=== PATIENT | male | born 1965 | race Caucasian/White ===

== ENCOUNTER 2018-08-16 16:36 | Inpatient (IN) | payer MEDICARE, MEDICAID ==
[~2018-08-16] VITALS: Ht 175.3 cm; Wt 75.9 kg
[2018-08-16] MEDS ORDERED: PACERONE200 MG PO (21:29)
[2018-08-16] MEDS ORDERED: LASIX40 MG PO (21:29)
[2018-08-16] MEDS ORDERED: BUPROPION HCL100 MG PO (21:30)
[2018-08-16] MEDS ORDERED: ENTRESTO 49 MG1 EACH PO (21:30)
[2018-08-16] MEDS ORDERED: ALDACTONE25 MG PO (21:30)
--- NOTE | 2018-08-16 21:30 | NUR ---
ADMIT ASSESSMENT COMPLETE. PT IS PALE AND DIAPHORETIC. HAS DYSPNEA AND SOB. COUGH THAT IS NOT PRODUCTIVE. AAO, LUNGS HAVE RHONCI, DIMINISHED 5L O2 NC. S1S2 RRR LEFT CHEST PACEMAKER NOTED. RIGHT FOREARM IV 20G STATES LAST BEER WAS YESTURDAY, ONE BEER. AND HAD 2-3 THE DAY BEFORE THAT. PT HAS NO S/S OF DT AT THIS TIME. NO S/S OF DISTRESS. CALL LIGHT IN REACH. BEDLOW TELEMETRY APPLIED. PT WILL CALL FOR ASSIST WHEN NEEDED. WILL CPOC
[2018-08-16] MEDS ORDERED: ASPIRIN325 MG PO (21:31)
[2018-08-16] MEDS ORDERED: KLONOPIN0.5 MG PO (21:33)
--- NOTE | 2018-08-16 22:57 | NUR ---
SPOKE WITH DR VILLAFUERTE REGARDING PT PAIN AND NEED OF HOME MEDICATIONS. PT HOME MEDS RESTARTED AND DILAUDID PUT IN ORDERED. WILL CPOC
--- NOTE | 2018-08-16 23:05 | NUR ---
PT UP TO GET ACCURATE WEIGHT. 176LBS PT NOW SOB AND SEVERE DYSPNEA. DILAUDID GIVEN FOR PAIN. MONITORING THE TELEMETRY. PT WILL CALL FOR NEEDS. WILL CPOC
[2018-08-17] VITALS (19 sets, daily range): BP systolic 93–128; BP diastolic 60–77; Ht 175.3 cm; Wt 75.9 kg
--- NOTE | 2018-08-17 03:22 | NUR ---
PT O2 SAT IS 70% ON 5L O2 NC. PLACED PT ON 5L HIGH FLOW NC, RESP IN ROOM. PT HARD TO WAKE, PHYSICAL STIMULI TO AROUSE. PT O2 SAT NOW 98% PT HAS NO S/S OF DISTRESS. BEDLOW AND CALL LIGHT IN REACH. WILL CPOC
--- NOTE | 2018-08-17 07:53 | NUR ---
THERE WAS QUESTIONS ABOUT PATIENTS RESPIRATORY STATUS. I RELAYED THE ABG FINDINGS TO JAK DUNCAN APN. SHE QUESTIONED TIME DRAWN, ANSWERED. WANTED TO KNOW WHAT THEY WERE NOW, NO DOCUMENTATION IN THE COMPUTER. I WENT INTO PATIENT ROOM TO OBTAIN SATS. ON RIGHT HAND ONLY ONE FINGER HAD ADEQUATE CAPILLARY REFILL OF LESS THAN 5 SECONDS. THIS IS THE RING FINGER. PULSE OX APPLIED. PATIENTS SATS 89% ON 9L OXYMIZER AND HE DESATED INTO LOWER 80'S HE TALKED. I ENCOURAGED THE PATIENT TO COUGH AND SATS INCREASED TO 92-93% BUT WOULD NOT HOLD LONG PATIENT TALKING. THIS INFORMATION RELAYED TO JAK AND THE BEDSIDE NURSE, JOSELITO MANRIQUEZ.
[2018-08-17 09:21] LABS: APTT 38.2 SECONDS (22.8-39.4); INR 1.15 (0.85-1.17); PROTIME 14.2 SECONDS (11.6-15.0)
[2018-08-17 09:34] LABS: ALBUMIN 2.3 g/dL (3.4-5.0); ANION GAP 13.1 mmol/L (8-16); BILIRUBIN - TOTAL 0.2 mg/dL (0.2-1.3); CALCIUM 8.6 mg/dL (8.5-10.1); CARBON DIOXIDE 26.2 mmol/L (21.0-32.0); CREATININE - SERUM 1.1 mg/dL (0.6-1.3); D-DIMER-QUANTITATIVE 11.09 ug/mLFEU (0.20-0.54); MAGNESIUM - SERUM 1.8 mg/dL (1.8-2.4); POTASSIUM - SERUM 4.3 mmol/L (3.5-5.1); PROTEIN - SERUM 6.9 g/dL (6.4-8.2)
[2018-08-17 09:36] LABS: CKMB 2.1 U/L (0.0-3.6); CREATINE KINASE 213 UL (21-232); TROPONIN-I < 0.017 ng/mL (0.000-0.060)
--- NOTE | 2018-08-17 10:00 | NUR ---
RECEIVED FROM ROOM 2105 PER BED WITH INCREASED SHORTNESS OF BREATH WITH PULSE OX DROPPING. PATIENT AWAKE AND ALERT SKIN WARM AND DRY. OXYGEN PER NC AT 9 LITERS. PULSE OX 93%. STATES ABD AND CHEST HURTING FROM COUGHING SO MUCH. ABD LOOKS TIGHT BUT SOFT. STATES HE STILL SMOKES SOME. IV RIGHT FOREARM INFUSING WITH DOBUTAMINE AT 2.5 MG/KG/MIN. AND LEVOQUIN INFUSING AT 100 ML HOUR. IV RED AND SLIGHTLY SWOLLEN. RESTARTED LEFT FOREARM PER ANJELICA YEE. X 2 ATTEMPTS. WITH 20 GAUGE. IV LEFT FOREARM DC'D.ADMITS TO BEING SHORT OF BREATH.
--- NOTE | 2018-08-17 10:01 | NUR ---
PATIENT IS STABLE AND VSS. HF NC @ 5L. O2SA5T 90%. ORDER RECIEVED FOR TRANSFER TO ICU. REPORT CALLED TO JOSSELINE. PATIENT TO ROOM 2312 VIA BED AND HOSPITAL PERSONNEL.
--- NOTE | 2018-08-17 10:30 | NUR ---
DR. VILLAFUERTE HERE. ORDERS NOTED
--- NOTE | 2018-08-17 10:57 | NUR ---
ECHO IN PROGRESS. THEN GOING TO CT SCAN
--- NOTE | 2018-08-17 11:15 | NUR ---
RETURNED FROM CT SCAN TOLERATED WELL. MOVED SELF FROM BED TO TABLE
--- NOTE | 2018-08-17 11:57 | NUR ---
DR. CLAY HERE UPDATE GIVEN ON PATIENT
[2018-08-17 12:05] LABS: HEMATOCRIT 27.9 % (42.0-54.0); HEMOGLOBIN 9.2 g/dL (13.5-17.5); MCH 27.7 pg (26.0-34.0); MEAN PLATELET VOLUME 9.9 fL (7.4-10.4); PLATELET COUNT 263 10x3/uL (130-400); RBC 3.32 10x6/uL (4.20-6.10); RDW 14.5 % (11.5-14.5); WBC 23.4 10x3/uL (4.8-10.8)
--- NOTE | 2018-08-17 12:30 | NUR ---
GIRL FRIEND HERE UP DATE GIVEN ASSISTED WITH CLEAN CATCH UA
[2018-08-17 12:33] LABS: LYMPHOCYTES 4 % (15-50); MONOCYTES 12 % (2-11); NEUTROPHILS 81 % (40-80)
[2018-08-17 13:08] LABS: PLATELET ESTIMATE NORMAL
[2018-08-17 13:37] LABS: UDS - AMPHET POSITIVE QUAL (NEGATIVE); UDS - BARB NEGATIVE QUAL (NEGATIVE); UDS - BENZO NEGATIVE QUAL (NEGATIVE); UDS - COCAINE NEGATIVE QUAL (NEGATIVE); UDS - OPIATE POSITIVE QUAL (NEGATIVE); UDS - PCP NEGATIVE QUAL (NEGATIVE); UDS - THC NEGATIVE QUAL (NEGATIVE)
[2018-08-17 13:39] LABS: APPEARANCE CLEAR (CLEAR); COLOR YELLOW (YELLOW); NITRITE NEGATIVE (NEGATIVE)
[2018-08-17 13:40] LABS: BILIRUBIN NEGATIVE (NEGATIVE); GLUCOSE NEGATIVE (NEGATIVE); KETONE NEGATIVE (NEGATIVE); PROTEIN 3+ mg/dL (NEGATIVE); UROBILINOGEN NORMAL (NORMAL)
[2018-08-17 13:42] LABS: BACTERIA FEW /hpf (NONE SEEN); EPITHELIAL CELLS 0-5 /hpf (0-5); RED CELLS - URINE NONE SEEN /hpf (0-5); WHITE CELLS - URINE NSEEN /hpf (0-5)
--- NOTE | 2018-08-17 13:54 | NUR ---
DR. VILLAFUERTE NOTIFIED OF URINE DRUG SCREEN RESULTS & ORDERED TYENOL FOR COMPLIANTS OF CHEST PAIN.
[2018-08-17 15:29] LABS: CKMB 2.1 U/L (0.0-3.6); CREATINE KINASE 241 UL (21-232)
--- NOTE | 2018-08-17 15:30 | NUR ---
PULSE OX IS DROPPING DONE INTO 80'S WHEN PATIENT IS SLEEPING. HAVE TO WAKE UP PATIENT AND HAVE HIM COUGH TO BRING UP. PATIENT CAN SLEEP AT TIMES WITH PULSE OX IN LOWER 90'S.
[2018-08-17 15:32] LABS: TROPONIN-I < 0.017 ng/mL (0.000-0.060)
--- NOTE | 2018-08-17 17:21 | NUR ---
dinner tray served
--- NOTE | 2018-08-17 18:20 | NUR ---
desat down into 80's when he tried to eat. resp therapy notified to set up a bipap machine
--- NOTE | 2018-08-17 19:35 | NUR ---
PT RECEIVED ON BIPAP WITH EYES CLOSED AND CHEST RISING. VSS. NO S/S OF DISTRESS. CALL LIGHT IN REACH.
[2018-08-17 20:47] LABS: CKMB 1.8 U/L (0.0-3.6); CREATINE KINASE 201 UL (21-232); TROPONIN-I < 0.017 ng/mL (0.000-0.060)
--- NOTE | 2018-08-17 21:05 | NUR ---
PT RECEIVED MEDICATIONS PER MAR. TOLERATED WELL. ON HFN/C 8LPM. FAMILY AT BEDSIDE. REPORT GIVEN AND QUESTIONS ANSWERED. NO CONCERNS NOTED.
--- NOTE | 2018-08-17 23:45 | NUR ---
REASSESSMENT COMPLETED, SEE FLOW SHEET. CONTINUES HF N/C. CALL LIGHT IN REACH. WILL CONTINUE TO OBSERVE.
[2018-08-18] VITALS (20 sets, daily range): BP systolic 84–105; BP diastolic 57–70
--- NOTE | 2018-08-18 01:30 | NUR ---
PT WITH EYES CLOSED AND CHEST RISING. NO S/S OF DISTRESS. WILL CONTINUE TO OBSERVE.
--- NOTE | 2018-08-18 03:04 | NUR ---
REASSESSMENT COMPLETED, SEE FLOW SHEET. PT MOVED TO RM 2315, DUE TO MONITOR NOT FUNCTIONING PROPERLY. MONITOR WOULD BLACKOUT AND COME BACK ON, CHANGING SETTINGS. PT PLACED ON BIPAP. TOLERATING WELL AT THIS TIME. CALL LIGHT IN REACH. WILL CONTINUE TO OBSERVE.
[2018-08-18 04:49] LABS: BASOPHILS 0.1 % (0-2); EOSINOPHILS 1.8 % (0-7); HEMATOCRIT 27.1 % (42.0-54.0); HEMOGLOBIN 9.3 g/dL (13.5-17.5); IMMATURE GRANULOCYTES 0.9 % (0-5); LYMPHOCYTES 5.3 % (15-50); MCHC 34.3 g/dL (31.0-37.0); MEAN PLATELET VOLUME 9.2 fL (7.4-10.4); MONOCYTES 7.3 % (2-11); NEUTROPHILS 84.6 % (40-80); PLATELET COUNT 239 10x3/uL (130-400); RBC 3.32 10x6/uL (4.20-6.10); RDW 14.1 % (11.5-14.5)
[2018-08-18 04:55] LABS: MCV 81.6 fL (80.0-100.0); WBC 14.6 10x3/uL (4.8-10.8)
[2018-08-18 05:01] LABS: ANION GAP 14.2 mmol/L (8-16); CALCIUM 8.4 mg/dL (8.5-10.1); CARBON DIOXIDE 25.5 mmol/L (21.0-32.0); CREATININE - SERUM 1.2 mg/dL (0.6-1.3); POTASSIUM - SERUM 3.7 mmol/L (3.5-5.1)
--- NOTE | 2018-08-18 08:00 | NUR ---
awakes easily to verbal sitmuli skin warm and dry, sleepy this am. left forearm iv red no swelling. infusing with dobutamine at 2.5 mcg/kg/min. void 275cc clear tabby urine. monitor sr. breakfast served ate well. good cough. trace edema all over.
--- NOTE | 2018-08-18 09:00 | NUR ---
GIRLFRIEND HERE ASSIST WITH COMPLETE BED BATH WITH HAIR WASHED. LINEN CHANGE
--- NOTE | 2018-08-18 09:56 | NUR ---
2 nurses tried to get iv on patient unsuccessful. DR. CLAY HERE ORDER MIDLINE. COMPLETE BED BATH GIVEN PER GIRLFRIEND. LINEN CHANGE. HAIR WASHED. UP TO CHAIR AT BEDSIDE SOME SHORTNESS OF BREATH, BUT TOLERATED WELL.
--- NOTE | 2018-08-18 10:00 | NUR ---
RAYMUNDO HERE TO DO MIDLINE
--- NOTE | 2018-08-18 10:30 | NUR ---
MID LINE COMPLETE PATIENT TOLERATED FAIR. NEW LINES APPLIED. DOBUTAMINE AT 2.5 MCG/KG/MIN. NS KVO FOR IVPB
--- NOTE | 2018-08-18 12:00 | NUR ---
LUNCH SERVED. POOR APPETITE ATE FEW BITES OF TURKEY AND MASHED POTATOES.
--- NOTE | 2018-08-18 13:02 | NUR ---
JEFE WITH DR. ENGLAND HERE, ORDERS TO DC DOBUTAMINE GOING TO CHANGE TO PO BLOOD THINNER.
--- NOTE | 2018-08-18 14:48 | MORECARE ---
CASE MANAGEMENT DISCHARGE SUMMARY PATIENT: JAY BAKER UNIT: [id number] ADM DATE: 08/16/18 AGE: 52 : 65 SEX: M ROOM/BED: D.2315 AUTHOR: FABRICIO HERNANDEZ PHYSICIAN: REFERRING PHYSICIAN: ROSALINDA VILLAFUERTE MD DATE OF SERVICE: 08/18/18 Discharge Plan Patient Name: [facility]AY BAK[facility] [facility] 1965 Planned Disposition: Home Anticipated Discharge Date: Discharge Date: Expected LOS: Initial Reviewer: [email or web address] Initial Review Date: 08/18/2018 Generated: 08/18/18 3:48 pm DCPIA - Discharge Planning Initial Assessment Updated by [email or web address]: Margaret Naranjo on 08/18/18 2:45 pm * Is the patient Alert and Oriented? Yes * How many steps to enter\exit or inside your home? * PCP Kash * Pharmacy [facility] * Preadmission Environment Home with Family * ADLs Independent * Equipment Monitor Cardiac * Other Equipment patient states he is suppose to use a cardiac cath technologist but it doesn't cherry picker operator at his home * List name and contact numbers for known caregivers / representatives who currently or will assist patient after discharge: Kristy Amor - girlfriend- [phone] * Verbal permission to speak to the caregivers and representatives has been obtained from the patient. N/A * Community resources currently utilized None * Additional services required to return to the preadmission environment? No * Can the patient safely return to the preadmission environment? Yes * Has this patient been hospitalized within the prior 30 days at any hospital? Yes Patient Name: JAY BAKER Page 47798 at 1448 All edits/amendments must be made on the electronic document DICTATION DATE: 08/18/181447 JOURNALISM PROFESSOR: ALFONSO 08/18/188 RPT#: [id number] DC DATE: STATUS: ADM IN [facility] [address] [place] [address] END OF REPORT
--- NOTE | 2018-08-18 14:58 | MORECARE ---
CASE MANAGEMENT DISCHARGE SUMMARY PATIENT: JAY BAKER UNIT: [id number] ADM DATE: 08/16/18 AGE: 52 : 65 SEX: M ROOM/BED: D.2315 AUTHOR: MARY,DOC PHYSICIAN: REFERRING PHYSICIAN: ROSALINDA VILLAFUERTE MD DATE OF SERVICE: 08/18/18 Discharge Plan Patient Name: JAY BAKER Facility: [facility]:[place] : 1965 Planned Disposition: Home Anticipated Discharge Date: Discharge Date: Expected LOS: Initial Reviewer: [email or web address] Initial Review Date: 08/18/2018 Generated: 08/18/18 3:58 pm Comments DCP- Discharge Planning Updated by [email or web address]: Margaret Naranjo on 08/18/18 1:[address] Patient Name: JAY BAKER Admission Status: Elective Accout number: [id number] Admission Date: 08-16-2018 : 1965 Admission Diagnosis:ACUTE RESPIRATORY FAILURE WITH HYPOXIA Attending: ROSALINDA VILLAFUERTE Current LOS: 2 Anticipated DC Date: Planned Disposition: Home Primary Insurance: MEDICARE A & B Discharge Planning Comments: CM met with patient at bedside. Patient states he lives at home with his girlfriend ( Kristy). He plans on returning to their home upon discharge. He states he feels safe at his home. He states he has a cardiac rehab nurse that he is suppose to wear. He states that it doesn't sisal picker where he lives. Patient may need home 02 upon discharge if he does require home 02 then he will need walk test. He states he will have family drive him home upon discharge. He denies any discharge needs at this time. CM will continue to follow and assist as needed with discharge planning / needs. Dress Operator: Margaret Naranjo DCPIA - Discharge Planning Initial Assessment Updated by [email or web address]: Margaret Naranjo on 08/18/18 2:45 pm * Is the patient Alert and Oriented? Yes * How many steps to enter\exit or inside your home? * PCP Kash * Pharmacy [facility] * Preadmission Environment Home with Family * ADLs Independent * Equipment Monitor Cardiac * Other Equipment patient states he is suppose to use a cardiac rehab nurse but it doesn't sisal picker at his home * List name and contact numbers for known caregivers / representatives who currently or will assist patient after discharge: Kristy Amor - girlfriend- [phone] * Verbal permission to speak to the caregivers and representatives has been obtained from the patient. N/A * Community resources currently utilized None * Additional services required to return to the preadmission environment? No * Can the patient safely return to the preadmission environment? Yes * Has this patient been hospitalized within the prior 30 days at any hospital? Yes Last DP export: 08/18/18 1:48 p Patient Name: JAY BAKER Page 13652 at 1458 All edits/amendments must be made on the electronic document DICTATION DATE: 08/18/181457 CARBIDE TOOL MAKER: ALFONSO 08/18/181457 RPT#: [id number] DC DATE: STATUS: ADM IN [facility] [address] [place] [address] END OF REPORT
--- NOTE | 2018-08-18 16:00 | NUR ---
COMPLAINTING OF COUGHING ANO NOT GETTING ANYTHING UP, NOY CHRISTIAN HERE NOTIFIED ORDER SOME COUGH SYRUP. STATES CHEST AND ABD HURTING FROM COUGHING SO MUCH. DOBUTAMINE OFF. DILAUDID GIVEN FOR ABD AND CHEST PAIN
--- NOTE | 2018-08-18 18:00 | NUR ---
ATE FAIR AT SUPPER. FAMILY AND PATIENT NOTIFIED OF TRANSFER TO 2138 WHEN ROOM CLEAN
--- NOTE | 2018-08-18 19:30 | NUR ---
PT RECEIVED WITH EYES CLOSED AND CHEST RISING. ON HIGH FLOW N/C 8LPM. EASILY AROUSED TO VERBAL STIMULI. NO CONCERNS MADE KNOWN. TRANSFER ORDERS RECEIVED AND WAITING ON RECEIVING UNIT ROOM TO BE CLEANED. WILL RECHECK AVAILABILITY. WILL CONTINUE TO OBSERVE.
--- NOTE | 2018-08-18 21:08 | NUR ---
REPORT GIVEN. 2100 MEDS GIVEN PER MAR WITH PRN DILAUDID AND COUGH MEDICATION GIVEN. PT AWARE OF TRANSFER AND AT BEDSIDE. GATHERING CHART AND BELONGINGS.
--- NOTE | 2018-08-18 21:20 | NUR ---
FROM ICU TO ROOM 2138 AT THIS TIME VIA STRETCHER. O2 7 HIGH FLOW CANULA BED LOW SRX2 AND LUNGS WITH WHEEZES THROUGHOUT SKIN WARM AND DRY PUT CALL LIGHT IN REACH ...IV ACCESS THROUGH LEFT ARM MID LINE
--- NOTE | 2018-08-18 21:30 | NUR ---
PT MOVED TO 2139. PT TRANSFERRED SELF TO [facility] BED. TOLERATED WELL. ON O2 PRIOR TO LEAVING.
--- NOTE | 2018-08-19 02:31 | NUR ---
PT HAS REFUSED BIPAP ALL NIGHT
--- NOTE | 2018-08-19 02:45 | NUR ---
SALINE LOCKED MIDLINE AT THIS TIME TO ALLOW BETTER REST FOR PT
--- NOTE | 2018-08-19 03:29 | NUR ---
I have reviewed this patient and I concur with the Shift Assessment completed by the Licensed Practical Nurse today this shift.
[2018-08-19 04:00] VITALS: BP 95/60
[2018-08-19 06:45] LABS: BASOPHILS 0.1 % (0-2); EOSINOPHILS 2.1 % (0-7); HEMATOCRIT 26.9 % (42.0-54.0); HEMOGLOBIN 8.9 g/dL (13.5-17.5); IMMATURE GRANULOCYTES 1.2 % (0-5); MCHC 33.1 g/dL (31.0-37.0); MCV 81.5 fL (80.0-100.0); MEAN PLATELET VOLUME 9.9 fL (7.4-10.4); MONOCYTES 9.1 % (2-11); NEUTROPHILS 82.5 % (40-80); PLATELET COUNT 268 10x3/uL (130-400); RDW 14.3 % (11.5-14.5); WBC 12.7 10x3/uL (4.8-10.8)
[2018-08-19 07:00] LABS: ANION GAP 14.8 mmol/L (8-16); CALCIUM 8.4 mg/dL (8.5-10.1); CREATININE - SERUM 1.1 mg/dL (0.6-1.3); POTASSIUM - SERUM 3.8 mmol/L (3.5-5.1)
[2018-08-19 08:25] VITALS: BP 97/59
--- NOTE | 2018-08-19 08:30 | NUR ---
PT RESTING IN BED WITH A FEMALE AT BEDSIDE. PT IS COUGHING UP THICK YELLOW AND WHITE MUCUS. 10L HIGH FLOW NC NOTED. AM MEDS GIVEN ORDERED. PT REPORTS PAIN 8/10 IN CHEST. WILL GIVE PT PRN HMP IF TIME. SCD IN PLACE AND ON. DENIES ANY OTHER NEEDS AT THIS TIME. WILL CONT TO FOLLOW PLAN OF CARE
--- NOTE | 2018-08-19 09:32 | MORECARE ---
CASE MANAGEMENT DISCHARGE SUMMARY PATIENT: JAY BAKER UNIT: [id number] ADM DATE: 08/16/18 AGE: 52 : 65 SEX: M ROOM/BED: D.3579 AUTHOR: MARY,DOC PHYSICIAN: REFERRING PHYSICIAN: ROSALINDA VILLAFUERTE MD DATE OF SERVICE: 08/19/18 Discharge Plan Patient Name: JAY BAKER Facility: [facility]:[place] : 1965 Planned Disposition: Home Anticipated Discharge Date: Discharge Date: Expected LOS: Initial Reviewer: [email or web address] Initial Review Date: 08/18/2018 Generated: 08/19/18 10:32 am Comments DCP- Discharge Planning Updated by [id number]: Margaret Naranjo on 08/18/18 1:[address] Patient Name: JAY BAKER Admission Status: Elective Accout number: [id number] Admission Date: 08-16-2018 : 1965 Admission Diagnosis:ACUTE RESPIRATORY FAILURE WITH HYPOXIA Attending: ROSALINDA VILLAFUERTE Current LOS: 2 Anticipated DC Date: Planned Disposition: Home Primary Insurance: MEDICARE A & B Discharge Planning Comments: CM met with patient at bedside. Patient states he lives at home with his girlfriend ( Kristy). He plans on returning to their home upon discharge. He states he feels safe at his home. He states he has a manager supply that he is suppose to wear. He states that it doesn't corn picker where he lives. Patient may need home 02 upon discharge if he does require home 02 then he will need walk test. He states he will have family drive him home upon discharge. He denies any discharge needs at this time. CM will continue to follow and assist as needed with discharge planning / needs. Childcare Attendant: Margaret Naranjo DCPIA - Discharge Planning Initial Assessment Updated by [email or web address]: Margaret Naranjo on 08/18/18 2:45 pm * Is the patient Alert and Oriented? Yes * How many steps to enter\exit or inside your home? * PCP Kash * Pharmacy [facility] * Preadmission Environment Home with Family * ADLs Independent * Equipment Monitor Cardiac * Other Equipment patient states he is suppose to use a manager supply but it doesn't corn picker at his home * List name and contact numbers for known caregivers / representatives who currently or will assist patient after discharge: Kristy Amor - girlfriend- [phone] * Verbal permission to speak to the caregivers and representatives has been obtained from the patient. N/A * Community resources currently utilized None * Additional services required to return to the preadmission environment? No * Can the patient safely return to the preadmission environment? Yes * Has this patient been hospitalized within the prior 30 days at any hospital? Yes Last DP export: 08/18/18 1:58 p Patient Name: JAY BAKER Page 08306 at 0932 All edits/amendments must be made on the electronic document DICTATION DATE: 08/19/18931 SECURITY GUARD: ALFONSO 08/19/18931 RPT#: [id number] DC DATE: STATUS: ADM IN [facility] [address] [place] [address] END OF REPORT
--- NOTE | 2018-08-19 10:25 | NUR ---
CHECKED ON PT AND NOTICED HE WAS HAVING A SLIGHT AMOUNT OF DIFFICULTY BREATHING. CHECKED O2 SAT. AND IT READ 85%. PT IS ON 10L HI FLOW CANNULA. NOTIFIED LUCAS RT OF DECREASED 02. LUCAS STATED HE WAS ABOUT TO COME TO THE PT ROOM TO DO HIS UPDRAFT. PT IS ALERT AND CAN TALK AT THIS TIME. WILL CONT TO MONITOR
[2018-08-19 12:08] VITALS: BP 101/64
--- NOTE | 2018-08-19 12:59 | NUR ---
PT REPORTS ABD PAIN AND STATES HE HAS NOT HAD A BM IN SEVERAL DAYS. STOMACH IS ROUNDED BUT SOFT. ABDOMINAL XRAY ORDERED
--- NOTE | 2018-08-19 14:38 | NUR ---
Nutrition Follow up: Cardiac diet with 30% average po intake Pt is drinking some Ensure Will add Ensure to all trays Pt is sleeping at this time RD following
--- NOTE | 2018-08-19 15:03 | EC ---
PATIENT:JAY BAKER DATE OF SERVICE: 08/16/18 SEX: M MEDICAL RECORD: [id number] DATE OF : 65 LOCATION:D.M2 D.213 AGE OF PATIENT: 52 ADMISSION DATE: 08/16/18 REFERRING PHYSICIAN: INTERPRETING PHYSICIAN: ARCHANA COLON MD ECHOCARDIOGRAM REPORT ECHO CHARGES 4 ECHO COMPLETE Date: 08/17/18 CLINICAL DIAGNOSIS: CHF/NON ISHCHEMIC CARDIOMYOPATHY, HX OF ICD/VT ECHOCARDIOGRAPHIC MEASUREMENTS (adult normal given) AC root (d.<3.7cm) 2.9 cm LV Septum d (<1.2 cm> 1.1 cm Valve Excursion 1.2 cm LV Septum (systole) 1.4 cm Left Atria (s.<4.0cm> 2.9 cm LVPW d(<1.2cm) 1.0 cm RV (d.<2.3cm) 3.8 cm LVPW (sytole) 1.2 cm LV diastole(<5.6CM) 5.4 cm MV E-F(>70mm/sec) cm LV systole 3.9 cm LVOT Diameter 1.7 cm MV exc.(>10mm) 2.1 cm Est.ejection fraction (50-75%) % DOPPLER: LVIT cm/sec A 87.0 cm/sec E 65.0 cm/sec LA cm/sec RVSP 45 mmHg LVOT 108 cm/sec AOP1/2T m/s Asc. Ao 146 cm/sec RVOT 93 cm/sec RA cm/sec PA 122 cm/sec AV Gradient Peak 8.49 mmHg AV Mean 4.58 mmHg AV Area 2.1 cm MV Gradient Peak 3.36 mmHg MV Mean 1.38 mmHg MV Area cm COMMENTS: Food And Nutrition Teacher: Ang CHAPMAN Patient'S Librarian: Jason Colon TAPE# PACS Pericardial Effusion N DATE OF SERVICE: 08/17/2018 ECHOCARDIOGRAM DATE OF SERVICE: 08/17/2018 FINDINGS: 1. Left ventricular chamber size is mildly dilated. Left ventricular systolic function is normal, ejection fraction in the 55% range. 2. Left atrium is within normal limits. Right atrium and right ventricle ECHOCARDIOGRAM REPORT [id number] JAY BAKER chamber sizes are as well within normal limits. 3. Valvular structures have normal structure and motion. 4. Doppler interrogation only reveals trace tricuspid regurgitation, no other valvular insufficiency or stenosis. Pulmonary systolic pressure is normal estimated at 45 mmHg. 5. No evidence of pericardial effusion or left ventricular thrombus. TRANSINT:[id number] Voice Confirmation ID: [id number] DOCUMENT ID: [id number] ARCHANA COLON MD at 1503 CC: [id number] DICTATION DATE: 08/17/18 1550 LASTING ROOM MACHINE OPERATOR: 08/17/18 9789 ADM IN [place] [id number] [place] [id number]
[2018-08-19 16:06] VITALS: BP 108/58
--- NOTE | 2018-08-19 19:10 | NUR ---
CO PAIN IN CHEST AND ABD SAYS IT FEELS LIKE A BROKEN RIB WHEN I COUGH LUNGS DIMINESHED WITH EXPIRIOTORY WHEEZES. BED IS LOW AND SR X2 CALL LIGHT IS IN REACH. SKIN WARM AND DRY O2 IS 8 HIGH FLOW AT THIS TIME DENIES SOB. MAG LEVEL WAS LOW ....DILAUDID TO GIVE FOR PAIN AND WILL HANG MAG RIDER
[2018-08-19 19:54] VITALS: BP 92/57
--- NOTE | 2018-08-19 20:04 | NUR ---
POST DILAUDID O2 SAT REMAINS UP AT 95%...VS STABLE PT RESTING
[2018-08-19 23:55] VITALS: BP 103/63
--- NOTE | 2018-08-20 02:43 | NUR ---
I have reviewed this patient and I concur with the Shift Assessment completed by the Licensed Practical Nurse today this shift.
[2018-08-20 03:55] VITALS: BP 96/53
[2018-08-20 06:18] LABS: BASOPHILS 0.1 % (0-2); HEMOGLOBIN 9.3 g/dL (13.5-17.5); IMMATURE GRANULOCYTES 2.7 % (0-5); LYMPHOCYTES 4.6 % (15-50); MCHC 33.2 g/dL (31.0-37.0); MCV 81.4 fL (80.0-100.0); MEAN PLATELET VOLUME 9.4 fL (7.4-10.4); MONOCYTES 9.5 % (2-11); NEUTROPHILS 81.1 % (40-80); PLATELET COUNT 283 10x3/uL (130-400); RBC 3.44 10x6/uL (4.20-6.10); RDW 14.3 % (11.5-14.5)
[2018-08-20 06:33] LABS: INR 1.34 (0.85-1.17)
[2018-08-20 06:36] LABS: WBC 16.1 10x3/uL (4.8-10.8)
[2018-08-20 06:47] LABS: ANION GAP 15.2 mmol/L (8-16); CALCIUM 8.5 mg/dL (8.5-10.1); CARBON DIOXIDE 24.4 mmol/L (21.0-32.0); CREATININE - SERUM 1.1 mg/dL (0.6-1.3); POTASSIUM - SERUM 3.6 mmol/L (3.5-5.1)
--- NOTE | 2018-08-20 07:00 | NUR ---
RECEIVED REPORT. ASSUMED CARE OF PATIENT. CALL LIGHT WITHIN REACH. PATIENT SITTING UP IN BED WITH EYES CLOSED. RESP EVEN AND UNLABORED. FEMALE ASLEEP IN CHAIR AT BEDSIDE. NO DISTRESS.
[2018-08-20 08:18] VITALS: BP 92/56
--- NOTE | 2018-08-20 09:49 | NUR ---
CALLED GUY BENEDICT WITH KUB REPORT. RECEIVED NEW ORDERS AND PLACED IN SYSTEM. RADIOLOGY UNABLE TO UPLOAD KUB AND HAND DELIVERED REPORT TO NURSES STATION.
--- NOTE | 2018-08-20 10:05 | NUR ---
MAG CITRATE ADMINISTERED ORDERED PER JAK GREASE AND TALLOW PUMPER DUE TO RESULTS OF KUB. KUB ON CHART, NOT AVAILABLE IN ELECTRONIC SYSTEM.
[2018-08-20 12:08] VITALS: BP 102/58
--- NOTE | 2018-08-20 15:16 | NUR ---
MEDICATED FOR PAIN AT THIS TIME. NO DISTRESS.
[2018-08-20 17:05] VITALS: BP 90/56
--- NOTE | 2018-08-20 18:27 | NUR ---
PATIENT RESTING WELL IN BED, STILL NO BOWEL MOVEMENT BUT PASSING GAS AND HE STATES HE FEELS BETTER. ABD IS NOT DISTENDED AND FIRM IT WAS EARLIER IN SHIFT. CALL LIGHT WITHIN REACH. NO DISTRESS.
--- NOTE | 2018-08-20 19:43 | NUR ---
EVENING ROUNDS COMPLETED. REPORT RECEIVED. PT SITTING UP IN BED WITH EYES CLOSED, RR EVEN AND UNLABORED. NO S/S OF DISTRESS NOTED. FEMALE AT BEDSIDE. OXYGEN AT 5 LITERS BY HIGH FLOW NASAL CANNULA. CALL LIGHT IN REACH. WILL CTM.
[2018-08-20 19:44] VITALS: BP 84/52
--- NOTE | 2018-08-20 23:42 | NUR ---
ADMINISTERED ORDERED ANALGESIC FOR PT COMPLAINTS OF PAIN IN LEFT SIDE OF ABDOMEN. PT STATES PAIN OF A 10 ON A SCALE OF 0-10. WILL CTM.
[2018-08-20 23:50] VITALS: BP 96/60
--- NOTE | 2018-08-21 01:33 | NUR ---
I have reviewed this patient and I concur with the Shift Assessment completed by the Licensed Practical Nurse today this shift.
[2018-08-21 03:55] VITALS: BP 94/56
[2018-08-21 06:16] LABS: CALC OSMOLALITY 261 mosm/kg (275-300); CARBON DIOXIDE 26.9 mmol/L (21.0-32.0); CHLORIDE - SERUM 96 mmol/L (98-107); GLUCOSE 95 mg/dL (74-106); POTASSIUM - SERUM 3.8 mmol/L (3.5-5.1); SODIUM 130 mmol/L (136-145); UREA NITROGEN 16 mg/dL (7-18); eGFR NON AFRICAN AMERICAN 83 mL/min (90-120)
--- NOTE | 2018-08-21 07:00 | NUR ---
RECEIVED REPORT. ASSUMED CARE OF PATIENT. RESTING IN BED WITH EYES CLOSED. RESP EVEN AND UNLABORED. CALL LIGHT WITHIN REACH. FEMALE VISITOR AT BEDSIDE WITH EYES CLOSED. NO DISTRESS.
[2018-08-21 07:18] LABS: BASOPHILS 0.2 % (0-2); EOSINOPHILS 3.4 % (0-7); HEMATOCRIT 27.4 % (42.0-54.0); LYMPHOCYTES 6.9 % (15-50); MCH 26.7 pg (26.0-34.0); MCHC 32.8 g/dL (31.0-37.0); MCV 81.3 fL (80.0-100.0); MEAN PLATELET VOLUME 9.6 fL (7.4-10.4); MONOCYTES 9.5 % (2-11); PLATELET COUNT 331 10x3/uL (130-400); RBC 3.37 10x6/uL (4.20-6.10); RDW 14.4 % (11.5-14.5); WBC 16.4 10x3/uL (4.8-10.8)
--- NOTE | 2018-08-21 07:59 | NUR ---
PATIENT COMPLAINING OF PAIN TO LEFT LOWER COSTOID CHRONDRITIS TYPE PAIN. BP 94/55. ONLY PAIN MEDICATIONS AVAILABLE IS IV DILAUDID. CALLED AND SPOKE WITH GUY BENEDICT AND INFORMED HER THAT PATIENT IS IN PAIN, CURRENT BP AND SBP HAS BEEN DIPPING INTO THE 80'S. GUY WILL REVIEW ALL RECORDS AND POSSIBLLY ORDER FLUID BOLUS ON PATIENT. AWAITING NEW ORDERS.
[2018-08-21 08:34] VITALS: BP 92/50
--- NOTE | 2018-08-21 09:42 | NUR ---
WARM PRUNE JUICE PROVIDED UPON REQUEST. DIESEL SERVICE APPRENTICE ON UNIT FOR ROUNDS AND NOTIFIED OF NO BM AFTER DRINKING MAG CITRATE YESTERDAY.
[2018-08-21 11:20] VITALS: BP 90/60
[2018-08-21 12:40] LABS: INR 1.89 (0.85-1.17)
--- NOTE | 2018-08-21 12:54 | NUR ---
CALLED AND SPOKE WITH BETSEY TOVAR, DUE TO JAK IS ALREADY GONE. INFORMED VENEER CLIPPER THAT BP 84/51 WITH 500 CC BOLUS OF NS AND PATIENT IS HURTING. TYLENOL WAS GIVEN FOR PAIN THIS AM BUT IS NOT CONTROLLING HIS PAIN. BETSEY STATES WILL LOOK AT PATIENT RECORDS AND GIVE ORDERS APPROPRIATE. PATIENT IS ALERT/ORIENTED, TALKING, SITTING UP IN BED. NO ACUTE DISTRESS.
--- NOTE | 2018-08-21 14:14 | NUR ---
SPOKE TO ABOUT HIM INCREASING PATIENTS PAIN MEDICATION BUT HIS BLOOD PRESSURE IS HYPOTENSIVE EVEN AFTER RECEIVING A BOLUS. RECEIVED NEW ORDER TO BOLUS PATIENT AGAIN WITH 500ML, NO CHANGE TO PAIN MEDICATION. ORDERS ENTERED.
--- NOTE | 2018-08-21 14:32 | NUR ---
BP 102/61 WITH IV BOLUS INFUSING AND PATIENT NOT SITTING STRAIGHT UP IN BED. PATIENT REMAINS ALERT/ORIENTED. PAIN MEDICATION ADMINISTERED. CALL LIGHT WITHIN REACH. PATIENT REPORTED BOWEL MOVEMENT FROM EARLIER MAG CITRATE AND PRUNE JUICE.
[2018-08-21 15:32] VITALS: BP 93/53
--- NOTE | 2018-08-21 15:33 | NUR ---
PATIENT PLACED ON BIPAP AT THIS TIME DUE TO O2 SAT IN 86-88 ON 9 LITERS HIGH FLOW. PATIENT O2 SATURATION 94% AFTER BEING PLACED ON BIPAP. CALL LIGHT WITHIN REACH. NO DISTRESS. FEMALE VISITOR REMAINS AT BEDSIDE.
--- NOTE | 2018-08-21 18:04 | NUR ---
RESTING IN BED, CONTINUES ON BIPAP. CALL LIGHT WITHIN REACH. NO DISTRESS. BP 99/54 AT THIS TIME.
--- NOTE | 2018-08-21 18:29 | NUR ---
MEDICATED FOR PAIN AT THIS TIME. SITTING UP IN BED. REPORTS XL BM, REPORTS ABLE TO NOW BLOW HIS NOSE AFTER MOISTENING NARE WITH [place] JELLY. PATIENT REPORTS HE FEELS SO MUCH BETTER RIGHT NOW!
--- NOTE | 2018-08-21 19:51 | NUR ---
EVENING ROUNDS COMPLETED. REPORT RECEIVED. PT SITTING UP IN BED WITH EYES OPEN, RR EVEN AND UNLABORED, OXYGEN AT 8 LITERS BY NASAL CANNULA. BED IN LOW POSITION. NO S/S OF DISTRESS. BED IN LOW POSITION. INTRODUCED SELF TO PT. PT DENIES FURTHER NEEDS AT THIS TIME. EMPTIED 200 MLS OF CONCENTRATED YELLOW URINARY OUTPUT FROM URINAL. NO S/S OF DISTRESS NOTED. CALL LIGHT IN REACH, WILL CTM.
[2018-08-21 21:11] VITALS: BP 92/44
[2018-08-22 03:55] VITALS: BP 92/61
--- NOTE | 2018-08-22 04:03 | NUR ---
I have reviewed this patient and I concur with the Shift Assessment completed by the Licensed Practical Nurse today this shift.
[2018-08-22 06:30] LABS: CALC OSMOLALITY 260 mosm/kg (275-300); CALCIUM 8.4 mg/dL (8.5-10.1); CARBON DIOXIDE 27.9 mmol/L (21.0-32.0); CHLORIDE - SERUM 95 mmol/L (98-107); GLUCOSE 99 mg/dL (74-106); POTASSIUM - SERUM 3.9 mmol/L (3.5-5.1); SODIUM 130 mmol/L (136-145); UREA NITROGEN 13 mg/dL (7-18); eGFR NON AFRICAN AMERICAN 83 mL/min (90-120)
[2018-08-22 06:32] LABS: INR 2.54 (0.85-1.17); PROTIME 26.6 SECONDS (11.6-15.0)
[2018-08-22 06:37] LABS: BASOPHILS 0.4 % (0-2); EOSINOPHILS 3.6 % (0-7); HEMATOCRIT 28.8 % (42.0-54.0); HEMOGLOBIN 9.4 g/dL (13.5-17.5); IMMATURE GRANULOCYTES 6.9 % (0-5); LYMPHOCYTES 6.1 % (15-50); MCH 26.9 pg (26.0-34.0); MCHC 32.6 g/dL (31.0-37.0); MCV 82.3 fL (80.0-100.0); MEAN PLATELET VOLUME 9.9 fL (7.4-10.4); MONOCYTES 9.5 % (2-11); NEUTROPHILS 73.5 % (40-80); RDW 14.5 % (11.5-14.5); WBC 19.4 10x3/uL (4.8-10.8)
[2018-08-22 06:53] LABS: PLATELET COUNT 408 10x3/uL (130-400)
[2018-08-22 08:28] VITALS: BP 88/59
[2018-08-22 12:11] VITALS: BP 103/56
--- NOTE | 2018-08-22 19:22 | NUR ---
PATIENT IS RESTING IN HIS BED. HE DENIES ANY NEEDS. BED IS DOWN LOW WITH SIDE RAILS UP X2. CALL [facility] IS IN REACH.
[2018-08-22 20:00] VITALS: BP 101/66
--- NOTE | 2018-08-22 20:31 | NUR ---
PATIENT IS RESTING IN HIS BED. MEDICATED WITH NORCO 10 MG PER PATIENT. PATIENT'S FRIEND IS AT BEDSIDE. BED IS DOWN LOW WITH SIDE RAILS UP X2 AND CALL LIGHT IN REACH.
--- NOTE | 2018-08-23 00:02 | NUR ---
PATIENT IS SLEEPING. BED IS DOWN LOW WITH SIDE RAILS UP X2. CALL LIGHT IN REACH.
[2018-08-23 00:30] VITALS: BP 109/55
--- NOTE | 2018-08-23 04:02 | NUR ---
PATIENT IS SLEEPING. BED IS DOWN LOW AND CALL LIGHT IS IN REACH.
[2018-08-23 04:30] VITALS: BP 102/62
[2018-08-23 06:56] LABS: BASOPHILS 0.3 % (0-2); EOSINOPHILS 2.8 % (0-7); HEMATOCRIT 29.1 % (42.0-54.0); HEMOGLOBIN 9.5 g/dL (13.5-17.5); IMMATURE GRANULOCYTES 6.5 % (0-5); LYMPHOCYTES 5.5 % (15-50); MCHC 32.6 g/dL (31.0-37.0); MCV 82.7 fL (80.0-100.0); MEAN PLATELET VOLUME 8.9 fL (7.4-10.4); MONOCYTES 6.2 % (2-11); NEUTROPHILS 78.7 % (40-80); PLATELET COUNT 332 10x3/uL (130-400); RBC 3.52 10x6/uL (4.20-6.10); RDW 14.5 % (11.5-14.5); WBC 15.3 10x3/uL (4.8-10.8)
[2018-08-23 07:18] LABS: ALBUMIN 2.2 g/dL (3.4-5.0); ANION GAP 10.2 mmol/L (8-16); BILIRUBIN - TOTAL 0.12 mg/dL (0.2-1.3); C-REACTIVE PROTEIN 17.2 mg/dL (0.0-0.9); CALCIUM 8.3 mg/dL (8.5-10.1); CARBON DIOXIDE 27.1 mmol/L (21.0-32.0); CREATININE - SERUM 1.1 mg/dL (0.6-1.3); POTASSIUM - SERUM 4.3 mmol/L (3.5-5.1); PROTEIN - SERUM 6.4 g/dL (6.4-8.2)
[2018-08-23 08:17] VITALS: BP 98/70
[2018-08-23 08:24] LABS: INR 2.98 (0.85-1.17); PROTIME 30.2 SECONDS (11.6-15.0)
[2018-08-23 12:08] VITALS: BP 95/53
--- NOTE | 2018-08-23 12:40 | NUR ---
ALERT AND ORIENTED X4. SITTING UP IN BED. REPORTS PAIN 03/02. NORCO 10 ADMINISTERED. WHILE CHEWING UP PILL, PATIENT STATES, "THIS DOES NOT WORK, I NEED MORE." INFORM PATIENT STRONGER MEDICATIONS DROP O2 SAT AND BLOOD PRESSURE BECOMING UNSTABLE. REQUEST FOR 2 NORCO 10. INFORM WILL BE NOTIFIED. DENIES ANY OTHER NEEDS. CONTINUE PLAN OF CARE AND SAFETY PRECAUTIONS. BIPAP PUT ON.
--- NOTE | 2018-08-23 14:00 | NUR ---
Nutrition Follow Up: Chart reviewed Diet: AHA; Ensure TID PO Intake: 67% meal avg BM: 08/21/18 Labs reviewed Meds noted including Lasix, MV Rec continue current diet, supplement regimen. Will continue to honor food preferences. RD following.
[2018-08-23 15:58] VITALS: BP 99/78
--- NOTE | 2018-08-23 16:59 | NUR ---
ALERT AND ORIENTED X4. SITTING UP IN BED. REPORTS BEING CONSTIPATED. NOTIFY DOCTOR. MIRALAX AND COLACE ORDERED. ADMINISTER FIRST DOSE OF MIRALAX WITH PRUNE JUICE. O2-96% WITH 8L HFNC. DENIES ANY OTHER NEEDS. CONTINUE PLAN OF CARE AND SAFETY PRECAUTIONS.
--- NOTE | 2018-08-23 18:43 | NUR ---
ALERT AND ORIENTED X4. SITTING UP IN BED. SPOUSE AT BEDSIDE. DENIES ANY NEEDS AT THIS TIME. PREPARE HAND OFF REPORT. CONTINUE PLAN OF CARE AND SAFETY PRECAUTIONS.
--- NOTE | 2018-08-23 20:15 | NUR ---
ROUNDS COMPLETED. RESUMING PT CARE. PT ALERT LAYING IN BED. NO S/S OF DISTRESS NOTED. IS AT BED SIDE, BED IN LOW POSITION WITH CALL LIGHT IN REACH. SIDE RAILS UP X 2. WILL CONTINUE TO MONITOR PT AND FOLLOW PLAN OF CARE.
[2018-08-24 00:30] VITALS: BP 107/49
--- NOTE | 2018-08-24 02:26 | NUR ---
I have reviewed this patient and I concur with the Shift Assessment completed by the Licensed Practical Nurse today this shift.
[2018-08-24 07:40] LABS: BASOPHILS 0.4 % (0-2); EOSINOPHILS 3.4 % (0-7); HEMATOCRIT 26.9 % (42.0-54.0); HEMOGLOBIN 8.8 g/dL (13.5-17.5); IMMATURE GRANULOCYTES 7.5 % (0-5); LYMPHOCYTES 6.9 % (15-50); MCH 26.7 pg (26.0-34.0); MCHC 32.7 g/dL (31.0-37.0); MCV 81.5 fL (80.0-100.0); MEAN PLATELET VOLUME 9.2 fL (7.4-10.4); MONOCYTES 10.1 % (2-11); NEUTROPHILS 71.7 % (40-80); PLATELET COUNT 371 10x3/uL (130-400); RDW 14.5 % (11.5-14.5); WBC 14.1 10x3/uL (4.8-10.8)
[2018-08-24 07:43] LABS: ALBUMIN 2.1 g/dL (3.4-5.0); ALKALINE PHOSPHATASE 86 U/L (46-116); ALT (SGPT) 40 U/L (10-68); BILIRUBIN - TOTAL 0.15 mg/dL (0.2-1.3); CALC OSMOLALITY 261 mosm/kg (275-300); CALCIUM 8.1 mg/dL (8.5-10.1); CARBON DIOXIDE 29.4 mmol/L (21.0-32.0); CHLORIDE - SERUM 96 mmol/L (98-107); CREATININE - SERUM 0.9 mg/dL (0.6-1.3); GLUCOSE 93 mg/dL (74-106); MAGNESIUM - SERUM 1.7 mg/dL (1.8-2.4); POTASSIUM - SERUM 4.2 mmol/L (3.5-5.1); PROTEIN - SERUM 6.2 g/dL (6.4-8.2); SODIUM 131 mmol/L (136-145); UREA NITROGEN 11 mg/dL (7-18); eGFR NON AFRICAN AMERICAN > 90 mL/min (90-120)
[2018-08-24 07:51] LABS: INR 2.98 (0.85-1.17); PROTIME 30.2 SECONDS (11.6-15.0)
[2018-08-24 08:30] VITALS: BP 96/56
--- NOTE | 2018-08-24 11:14 | NUR ---
Rehab Note- Acute Inpatient Rehab prescreen order received. The patient has [employer] Insurance and will require a PreAuth prior to an inpatient acute rehab stay. He has a pending PT & OT Eval- will follow to see the patient's functional mobility. Will continue to follow at this time and will begint the PreAuth process when Evals are available. Thank you for this referral! Renetta Beach RN CLinical Liaison, [facility] Rehab
[2018-08-24 11:46] VITALS: BP 96/59
[2018-08-24 15:14] LABS: ACLA - IGG AB <9 GPL U/mL (0-14); ACLA - IGM AB <9 MPL U/mL (0-12)
[2018-08-24 15:47] VITALS: BP 95/58
[2018-08-24 16:49] LABS: CKMB 0.7 U/L (0.0-3.6); CREATINE KINASE 132 UL (21-232)
[2018-08-24 16:50] LABS: TROPONIN-I < 0.017 ng/mL (0.000-0.060)
[2018-08-24 19:55] VITALS: BP 105/72; BP 123/85
--- NOTE | 2018-08-24 20:45 | NUR ---
RESUMING PT CARE. PT ALERT LAYING IN BED. FAMILY AT BEDSIDE. NO C/O VOICED. NO S/S OF DISTRESS NOTED. BED IN LOW POSITION WITH CALL LIGHT IN REACH. WILL CONTINUE TO MONITOR PT AND FOLLOW PLAN OF CARE.
[2018-08-24 23:09] LABS: CKMB 0.7 U/L (0.0-3.6); CREATINE KINASE 126 UL (21-232); TROPONIN-I < 0.017 ng/mL (0.000-0.060)
[2018-08-25 00:41] VITALS: BP 95/57
--- NOTE | 2018-08-25 03:46 | NUR ---
I have reviewed this patient and I concur with the Shift Assessment completed by the Licensed Practical Nurse today this shift.
[2018-08-25 04:55] LABS: BASOPHILS 0.3 % (0-2); EOSINOPHILS 3.6 % (0-7); HEMATOCRIT 27.1 % (42.0-54.0); IMMATURE GRANULOCYTES 6.8 % (0-5); LYMPHOCYTES 5.9 % (15-50); MCH 26.8 pg (26.0-34.0); MCHC 33.2 g/dL (31.0-37.0); MCV 80.7 fL (80.0-100.0); MONOCYTES 10.1 % (2-11); NEUTROPHILS 73.3 % (40-80); PLATELET COUNT 358 10x3/uL (130-400); RBC 3.36 10x6/uL (4.20-6.10); RDW 14.6 % (11.5-14.5); WBC 15.3 10x3/uL (4.8-10.8)
[2018-08-25 05:19] LABS: ALBUMIN 2.2 g/dL (3.4-5.0); ALKALINE PHOSPHATASE 84 U/L (46-116); ALT (SGPT) 38 U/L (10-68); BILIRUBIN - TOTAL 0.17 mg/dL (0.2-1.3); CALC OSMOLALITY 258 mosm/kg (275-300); CALCIUM 8.2 mg/dL (8.5-10.1); CARBON DIOXIDE 29.1 mmol/L (21.0-32.0); CHLORIDE - SERUM 94 mmol/L (98-107); CKMB 0.7 U/L (0.0-3.6); CREATINE KINASE 109 UL (21-232); CREATININE - SERUM 0.9 mg/dL (0.6-1.3); GLUCOSE 92 mg/dL (74-106); MAGNESIUM - SERUM 1.7 mg/dL (1.8-2.4); POTASSIUM - SERUM 4.6 mmol/L (3.5-5.1); PROTEIN - SERUM 6.4 g/dL (6.4-8.2); SODIUM 129 mmol/L (136-145); UREA NITROGEN 12 mg/dL (7-18); eGFR NON AFRICAN AMERICAN > 90 mL/min (90-120)
[2018-08-25 05:21] LABS: TROPONIN-I < 0.017 ng/mL (0.000-0.060)
[2018-08-25 08:36] VITALS: BP 102/62
[2018-08-25 10:18] LABS: PROTEIN S - FREE 37 % (57-157); PROTEIN S - TOTAL 62 % (60-150)
--- NOTE | 2018-08-25 11:46 | NUR ---
Rehab Note- Awaiting OT Eval. The patient is noted to be independent with his mobility per PT note. Will continue to follow at this time. If the patient does not have a therapy need he will not have an acute inpatient rehab need and will not qualify for PreAuth. Thank you for this referral! Renetta Beach RN Clinical Liaison, [facility] Rehab
[2018-08-25 12:07] VITALS: BP 111/63
[2018-08-25 15:15] LABS: PROTEIN S - FREE 47 % (57-157); PROTEIN S - FUNCTIONAL 38 % (63-140); PROTEIN S - TOTAL 60 % (60-150)
[2018-08-25 16:40] VITALS: BP 99/62
--- NOTE | 2018-08-25 18:13 | NUR ---
I have reviewed this patient and I concur with the Shift Assessment completed by the Licensed Practical Nurse today this shift.
--- NOTE | 2018-08-25 19:30 | NUR ---
AWAKE AND ALERT LAUGHING AND JOKING WITH SO. O2 AT 5 LITERS HFBED IS LOW MID LINE TO LEFT ARM PATENTLUNGS WITH WHEEZES ABD SOFTER AND SKIN WARM AND DRY
[2018-08-25 21:18] VITALS: BP 100/71
--- NOTE | 2018-08-26 02:52 | NUR ---
Patient received in bed with eyes closed, high flow oxygen on @6L/min. CIGARETTE TIPPER states patient asked for BIPAP to be taken off earlier as was complaining of a headache from it, CIGARETTE TIPPER has already given analgesic earlier and was not yet due. Has a midline to upper left arm which is SL. Female visitor at bedside, both patient and visitor sleeping at this time. No signs of distress.
[2018-08-26 04:00] VITALS: BP 99/70
[2018-08-26 05:52] LABS: BASOPHILS 0.3 % (0-2); EOSINOPHILS 3.7 % (0-7); HEMATOCRIT 27.2 % (42.0-54.0); HEMOGLOBIN 9.1 g/dL (13.5-17.5); IMMATURE GRANULOCYTES 5.4 % (0-5); LYMPHOCYTES 5.6 % (15-50); MCH 26.8 pg (26.0-34.0); MCHC 33.5 g/dL (31.0-37.0); MEAN PLATELET VOLUME 8.9 fL (7.4-10.4); MONOCYTES 9.9 % (2-11); NEUTROPHILS 75.1 % (40-80); PLATELET COUNT 390 10x3/uL (130-400); RDW 14.5 % (11.5-14.5); WBC 17.3 10x3/uL (4.8-10.8)
[2018-08-26 06:07] LABS: ALBUMIN 2.3 g/dL (3.4-5.0); ALKALINE PHOSPHATASE 87 U/L (46-116); ALT (SGPT) 35 U/L (10-68); BILIRUBIN - TOTAL 0.17 mg/dL (0.2-1.3); CALC OSMOLALITY 255 mosm/kg (275-300); CALCIUM 8.2 mg/dL (8.5-10.1); CARBON DIOXIDE 25.4 mmol/L (21.0-32.0); CHLORIDE - SERUM 95 mmol/L (98-107); GLUCOSE 97 mg/dL (74-106); MAGNESIUM - SERUM 1.7 mg/dL (1.8-2.4); POTASSIUM - SERUM 4.3 mmol/L (3.5-5.1); PROTEIN - SERUM 6.4 g/dL (6.4-8.2); SODIUM 128 mmol/L (136-145); UREA NITROGEN 11 mg/dL (7-18); eGFR NON AFRICAN AMERICAN 83 mL/min (90-120)
--- NOTE | 2018-08-26 07:31 | NUR ---
PT ASLEEP, AT BEDSIDE. NO QUESTIONS/CONCERNS VOICED AT THIS TIME. CL IN REACH. SRX2.
[2018-08-26 09:24] VITALS: BP 113/67
--- NOTE | 2018-08-26 12:05 | NUR ---
I have reviewed this patient and I concur with the Shift Assessment completed by the Licensed Practical Nurse today this shift.
[2018-08-26 12:32] VITALS: BP 127/80
--- NOTE | 2018-08-26 13:47 | NUR ---
Nutrition follow-up: Visited with pt. Pt reports good appetite with no c/o at this time. Diet: Low sodium PO intake 100% of meals; suspect pts is sharing meals with pt. Labs reviewed +BM Wt: 178# RDN following.
--- NOTE | 2018-08-26 14:24 | MORECARE ---
CASE MANAGEMENT DISCHARGE SUMMARY PATIENT: JAY BAKER UNIT: [id number] ADM DATE: 08/16/18 AGE: 52 : 65 SEX: M ROOM/BED: D.5584 AUTHOR: FABRICIO HERNANDEZ PHYSICIAN: REFERRING PHYSICIAN: ROSALINDA VILLAFUERTE MD DATE OF SERVICE: 08/26/18 Discharge Plan Patient Name: JAY BAKER Facility: [facility]:[place] : 1965 Planned Disposition: Home Anticipated Discharge Date: Discharge Date: Expected LOS: Initial Reviewer: [id number] Initial Review Date: 08/18/2018 Generated: 08/26/18 3:24 pm Comments DCP- Discharge Planning Updated by [email or web address]: Kimberly Chow on 08/26/18 1:[address] Patient Name: JAY BAKER Admission Status: Elective Accout number: [id number] Admission Date: 08-16-2018 : 1965 Admission Diagnosis:ACUTE RESPIRATORY FAILURE WITH HYPOXIA Attending: ROSALINDA VILLAFUERTE Current LOS: 10 Anticipated DC Date: Planned Disposition: Home Primary Insurance: [employer] ADV Discharge Planning Comments: CM MET WITH PATIENT, HE DOES NOT WANT SNF OR HH. PATIENT STATES ONLY PROBLEM IS SOB AND HE HAS FAMILY THAT LIVES WITH HIM. CM WILL WORK ON GETTING PATIENT TRILOGY BEFORE DISCHARGE. Business Partner: Kimberly Chow DCP- Discharge Planning Updated by [email or web address]: Margaret Naranjo on 08/18/18 1:[address] Patient Name: JAY BAKER Admission Status: Elective Accout number: [id number] Admission Date: 08-16-2018 : 1965 Admission Diagnosis:ACUTE RESPIRATORY FAILURE WITH HYPOXIA Attending: ROSALINDA VILLAFUERTE Current LOS: 2 Anticipated DC Date: Planned Disposition: Home Primary Insurance: MEDICARE A & B Discharge Planning Comments: CM met with patient at bedside. Patient states he lives at home with his girlfriend ( Kristy). He plans on returning to their home upon discharge. He states he feels safe at his home. He states he has a cardiac nurse that he is suppose to wear. He states that it doesn't grape picker where he lives. Patient may need home 02 upon discharge if he does require home 02 then he will need walk test. He states he will have family drive him home upon discharge. He denies any discharge needs at this time. CM will continue to follow and assist as needed with discharge planning / needs. Business Partner: Margaret Naranjo DCPIA - Discharge Planning Initial Assessment Updated by [email or web address]: Margaret Naranjo on 08/18/18 2:45 pm * Is the patient Alert and Oriented? Yes * How many steps to enter\exit or inside your home? * PCP Kash * Pharmacy [place] * Preadmission Environment Home with Family * ADLs Independent * Equipment Monitor Cardiac * Other Equipment patient states he is suppose to use a cardiac nurse but it doesn't grape picker at his home * List name and contact numbers for known caregivers / representatives who currently or will assist patient after discharge: Kristy Amor - girlfriend- [phone] * Verbal permission to speak to the caregivers and representatives has been obtained from the patient. N/A * Community resources currently utilized None * Additional services required to return to the preadmission environment? No * Can the patient safely return to the preadmission environment? Yes * Has this patient been hospitalized within the prior 30 days at any hospital? Yes Last DP export: 08/19/18 8:32 a Patient Name: JAY BAKER Page 60861 at 1424 All edits/amendments must be made on the electronic document DICTATION DATE: 08/26/181423 AIRPLANE CHARTER CLERK: ALFONSO 08/26/181423 RPT#: [id number] DC DATE: STATUS: ADM IN [facility] [address] [place] [address] END OF REPORT
--- NOTE | 2018-08-26 14:43 | MORECARE ---
CASE MANAGEMENT DISCHARGE SUMMARY PATIENT: JAY BAKER UNIT: [id number] ADM DATE: 08/16/18 AGE: 52 : 65 SEX: M ROOM/BED: D.6263 AUTHOR: FABRICIO HERNANDEZ PHYSICIAN: REFERRING PHYSICIAN: ROSALINDA VILLAFUERTE MD DATE OF SERVICE: 08/26/18 Discharge Plan Patient Name: JAY BAKER Facility: [facility]:[place] : 1965 Planned Disposition: Home Anticipated Discharge Date: Discharge Date: Expected LOS: Initial Reviewer: [email or web address] Initial Review Date: 08/18/2018 Generated: 08/26/18 3:43 pm Comments DCP- Discharge Planning Updated by [email or web address]: Kimberly Chow on 08/26/18 1:[address] Patient Name: JAY BAKER Admission Status: Elective Accout number: [id number] Admission Date: 08-16-2018 : 1965 Admission Diagnosis:ACUTE RESPIRATORY FAILURE WITH HYPOXIA Attending: ROSALINDA VILLAFUERTE Current LOS: 10 Anticipated DC Date: Planned Disposition: Home Primary Insurance: [employer] ADV Discharge Planning Comments: CM MET WITH PATIENT, HE DOES NOT WANT SNF OR HH. PATIENT STATES ONLY PROBLEM IS SOB AND HE HAS FAMILY THAT LIVES WITH HIM. CM WILL WORK ON GETTING PATIENT TRILOGY BEFORE DISCHARGE. Veterinary Pharmacologist: Kimberly Chow DCP- Discharge Planning Updated by [email or web address]: Margaret Naranjo on 08/18/18 1:[address] Patient Name: JAY BAKER Admission Status: Elective Accout number: [id number] Admission Date: 08-16-2018 : 1965 Admission Diagnosis:ACUTE RESPIRATORY FAILURE WITH HYPOXIA Attending: ROSALINDA VILLAFUERTE Current LOS: 2 Anticipated DC Date: Planned Disposition: Home Primary Insurance: MEDICARE A & B Discharge Planning Comments: CM met with patient at bedside. Patient states he lives at home with his girlfriend ( Kristy). He plans on returning to their home upon discharge. He states he feels safe at his home. He states he has a conveyor monitor that he is suppose to wear. He states that it doesn't cotton picker where he lives. Patient may need home 02 upon discharge if he does require home 02 then he will need walk test. He states he will have family drive him home upon discharge. He denies any discharge needs at this time. CM will continue to follow and assist as needed with discharge planning / needs. Veterinary Pharmacologist: Margaret Naranjo DCPIA - Discharge Planning Initial Assessment Updated by [email or web address]: Margaret Naranjo on 08/18/18 2:45 pm * Is the patient Alert and Oriented? Yes * How many steps to enter\exit or inside your home? * PCP Kash * Pharmacy [place] * Preadmission Environment Home with Family * ADLs Independent * Equipment Monitor Cardiac * Other Equipment patient states he is suppose to use a conveyor monitor but it doesn't cotton picker at his home * List name and contact numbers for known caregivers / representatives who currently or will assist patient after discharge: Kristy Amor - girlfriend- [phone] * Verbal permission to speak to the caregivers and representatives has been obtained from the patient. N/A * Community resources currently utilized None * Additional services required to return to the preadmission environment? No * Can the patient safely return to the preadmission environment? Yes * Has this patient been hospitalized within the prior 30 days at any hospital? Yes External Providers External Provider: Basilio Next Contact Date: Service Request Date: Service Type: Resolution: Reviewer: Comments: Last DP export: 08/26/18 1:24 pm Patient Name: JAY BAKER Page 10085 at 1443 All edits/amendments must be made on the electronic document DICTATION DATE: 08/26/181441 PROGRAM DEVELOPER: ALFONSO 08/26/181441 RPT#: [id number] DC DATE: STATUS: ADM IN [facility] [address] [place] [address] END OF REPORT
--- NOTE | 2018-08-26 14:52 | MORECARE ---
CASE MANAGEMENT DISCHARGE SUMMARY PATIENT: JAY BAKER UNIT: [id number] ADM DATE: 08/16/18 AGE: 52 : 65 SEX: M ROOM/BED: D.2139 AUTHOR: FABRICIO HERNANDEZ PHYSICIAN: REFERRING PHYSICIAN: ROSALINDA VILLAFUERTE MD DATE OF SERVICE: 08/26/18 Discharge Plan Patient Name: JAY BAKER Facility: [facility]:[place] : 1965 Planned Disposition: Home Anticipated Discharge Date: Discharge Date: Expected LOS: Initial Reviewer: [email or web address] Initial Review Date: 08/18/2018 Generated: 08/26/18 3:52 pm Comments DCP- Discharge Planning Updated by [email or web address]: Kimberly Chow on 08/26/18 1:[address] Patient Name: JAY BAKER Admission Status: Elective Accout number: [id number] Admission Date: 08-16-2018 : 1965 Admission Diagnosis:ACUTE RESPIRATORY FAILURE WITH HYPOXIA Attending: ROSALINDA VILLAFUERTE Current LOS: 10 Anticipated DC Date: Planned Disposition: Home Primary Insurance: [employer] ADV Discharge Planning Comments: CM MET WITH PATIENT, HE DOES NOT WANT SNF OR HH. PATIENT STATES ONLY PROBLEM IS SOB AND HE HAS FAMILY THAT LIVES WITH HIM. CM WILL WORK ON GETTING PATIENT TRILOGY BEFORE DISCHARGE. Grinder Set Up Operator Jig: Kimberly Chow Appended by Kimberly Chow on 08/26/2018 14:49 CDT: [facility] AT FAX [phone] FOR TRILOGY. [facility] PHONE NUMBER IS [phone]. DCP- Discharge Planning Updated by [id number]: Margaret Naranjo on 08/18/18 1:[address] Patient Name: JAY BAKER Admission Status: Elective Accout number: [id number] Admission Date: 08-16-2018 : 1965 Admission Diagnosis:ACUTE RESPIRATORY FAILURE WITH HYPOXIA Attending: ROSALINDA VILLAFUERTE Current LOS: 2 Anticipated DC Date: Planned Disposition: Home Primary Insurance: MEDICARE A & B Discharge Planning Comments: CM met with patient at bedside. Patient states he lives at home with his girlfriend ( Kristy). He plans on returning to their home upon discharge. He states he feels safe at his home. He states he has a cardiac cath lab radiology technologist that he is suppose to wear. He states that it doesn't picking supervisor where he lives. Patient may need home 02 upon discharge if he does require home 02 then he will need walk test. He states he will have family drive him home upon discharge. He denies any discharge needs at this time. CM will continue to follow and assist as needed with discharge planning / needs. Grinder Set Up Operator Jig: Margaret Naranjo DCPIA - Discharge Planning Initial Assessment Updated by [email or web address]: Margaret Naranjo on 08/18/18 2:45 pm * Is the patient Alert and Oriented? Yes * How many steps to enter\exit or inside your home? * PCP Kash * Pharmacy [facility] * Preadmission Environment Home with Family * ADLs Independent * Equipment Monitor Cardiac * Other Equipment patient states he is suppose to use a cardiac cath lab radiology technologist but it doesn't picking supervisor at his home * List name and contact numbers for known caregivers / representatives who currently or will assist patient after discharge: Kristy Amor - girlfriend- [phone] * Verbal permission to speak to the caregivers and representatives has been obtained from the patient. N/A * Community resources currently utilized None * Additional services required to return to the preadmission environment? No * Can the patient safely return to the preadmission environment? Yes * Has this patient been hospitalized within the prior 30 days at any hospital? Yes Last DP export: 08/26/18 1:43 pm Patient Name: JAY BAKER Page 51670 at 1452 All edits/amendments must be made on the electronic document DICTATION DATE: 08/26/181450 SUPERVISOR VAT HOUSE: ALFONSO 08/26/181450 RPT#: [id number] DC DATE: STATUS: ADM IN [facility] [address] [place] [address] END OF REPORT
[2018-08-26 16:05] VITALS: BP 118/79
--- NOTE | 2018-08-26 16:21 | MORECARE ---
CASE MANAGEMENT DISCHARGE SUMMARY PATIENT: JAY BAKER UNIT: [id number] ADM DATE: 08/16/18 AGE: 52 : 65 SEX: M ROOM/BED: D.2139 AUTHOR: FABRICIO HERNANDEZ PHYSICIAN: REFERRING PHYSICIAN: ROSALINDA VILLAFUERTE MD DATE OF SERVICE: 08/26/18 Discharge Plan Patient Name: JAY BAKER Facility: [facility]:[place] : 1965 Planned Disposition: Home Anticipated Discharge Date: Discharge Date: Expected LOS: Initial Reviewer: [email or web address] Initial Review Date: 08/18/2018 Generated: 08/26/18 5:21 pm Comments DCP- Discharge Planning Updated by [email or web address]: Kimberly Chow on 08/26/18 1:[address] Patient Name: JAY BAKER Admission Status: Elective Accout number: [id number] Admission Date: 08-16-2018 : 1965 Admission Diagnosis:ACUTE RESPIRATORY FAILURE WITH HYPOXIA Attending: ROSALINDA VILLAFUERTE Current LOS: 10 Anticipated DC Date: Planned Disposition: Home Primary Insurance: [employer] MEDICARE ADV Discharge Planning Comments: CM MET WITH PATIENT, HE DOES NOT WANT SNF OR HH. PATIENT STATES ONLY PROBLEM IS SOB AND HE HAS FAMILY THAT LIVES WITH HIM. CM WILL WORK ON GETTING PATIENT TRILOGY BEFORE DISCHARGE. Glass Finisher: Kimberly Chow Appended by Kimberly Chow on 08/26/2018 14:49 CDT: [facility] AT FAX [phone] FOR TRILOGY. [facility] PHONE NUMBER IS [phone]. DCP- Discharge Planning Updated by [email or web address]: Margaret Naranjo on 08/18/18 1:[address] Patient Name: JAY BAKER Admission Status: Elective Accout number: [id number] Admission Date: 08-16-2018 : 1965 Admission Diagnosis:ACUTE RESPIRATORY FAILURE WITH HYPOXIA Attending: ROSALINDA VILLAFUERTE Current LOS: 2 Anticipated DC Date: Planned Disposition: Home Primary Insurance: MEDICARE A & B Discharge Planning Comments: CM met with patient at bedside. Patient states he lives at home with his girlfriend ( Krisyt). He plans on returning to their home upon discharge. He states he feels safe at his home. He states he has a quality assurance monitor body that he is suppose to wear. He states that it doesn't fish bait picker where he lives. Patient may need home 02 upon discharge if he does require home 02 then he will need walk test. He states he will have family drive him home upon discharge. He denies any discharge needs at this time. CM will continue to follow and assist as needed with discharge planning / needs. Glass Finisher: Margaret Naranjo DCPIA - Discharge Planning Initial Assessment Updated by [email or web address]: Margaret Naranjo on 08/18/18 2:45 pm * Is the patient Alert and Oriented? Yes * How many steps to enter\exit or inside your home? * PCP Kash * Pharmacy [facility] * Preadmission Environment Home with Family * ADLs Independent * Equipment Monitor Cardiac * Other Equipment patient states he is suppose to use a quality assurance monitor body but it doesn't fish bait picker at his home * List name and contact numbers for known caregivers / representatives who currently or will assist patient after discharge: Kristy Amor - girlfriend- [phone] * Verbal permission to speak to the caregivers and representatives has been obtained from the patient. N/A * Community resources currently utilized None * Additional services required to return to the preadmission environment? No * Can the patient safely return to the preadmission environment? Yes * Has this patient been hospitalized within the prior 30 days at any hospital? Yes Last DP export: 08/26/18 1:52 pm Patient Name: JAY BAKER Page 01384 at 1621 All edits/amendments must be made on the electronic document DICTATION DATE: 08/26/181619 [place] HISTORY PROFESSOR: ALFONSO 08/26/181619 RPT#: [id number] DC DATE: STATUS: ADM IN [facility] [address] [place] [address] END OF REPORT
--- NOTE | 2018-08-26 18:04 | NUR ---
PT AWAKE AND IN BED. AT BEDSIDE. CL IN REACH SRX2. NO COMPLAINTS OR CONCERNS VOICED AT THIS TIME.
--- NOTE | 2018-08-26 19:38 | NUR ---
PT SITTING UP IN BED RECIEVING BREATHING TREATMENT. PT COMPLAINS OF PAIN IN ABDOMEN. STATES THAT HE MAY BE CONSTIPATED. WILL REVIEW MAR. AT BEDSIDE, BED LOW, CALL LIGHT WITHIN REACH. WILL CONTINUE TO MONITOR.
[2018-08-26 20:00] VITALS: BP 111/70
[2018-08-26 23:56] VITALS: BP 106/59
[2018-08-27 00:16] VITALS: BP 124/79
--- NOTE | 2018-08-27 01:08 | NUR ---
PT RESTING COMFORTABLY WITH EYES CLOSED. RR EVEN AND UNLABORED. BI PAP AT 45%. PT AT BEDSIDE. BED LOW CALL LIGHT WITHIN REACH. WILL CONTINUE TO MONITOR.
[2018-08-27 04:25] VITALS: BP 92/59
[2018-08-27 05:00] LABS: BASOPHILS 0.3 % (0-2); EOSINOPHILS 3.4 % (0-7); HEMATOCRIT 26.2 % (42.0-54.0); HEMOGLOBIN 8.8 g/dL (13.5-17.5); IMMATURE GRANULOCYTES 5.4 % (0-5); LYMPHOCYTES 5.6 % (15-50); MCH 26.7 pg (26.0-34.0); MCHC 33.6 g/dL (31.0-37.0); MCV 79.6 fL (80.0-100.0); MEAN PLATELET VOLUME 8.6 fL (7.4-10.4); MONOCYTES 7.1 % (2-11); NEUTROPHILS 78.2 % (40-80); PLATELET COUNT 375 10x3/uL (130-400); RBC 3.29 10x6/uL (4.20-6.10); RDW 14.3 % (11.5-14.5); WBC 18.4 10x3/uL (4.8-10.8)
[2018-08-27 05:39] LABS: ALBUMIN 2.3 g/dL (3.4-5.0); ALKALINE PHOSPHATASE 88 U/L (46-116); ALT (SGPT) 43 U/L (10-68); BILIRUBIN - TOTAL 0.22 mg/dL (0.2-1.3); CALC OSMOLALITY 251 mosm/kg (275-300); CALCIUM 7.9 mg/dL (8.5-10.1); CARBON DIOXIDE 26.4 mmol/L (21.0-32.0); CHLORIDE - SERUM 92 mmol/L (98-107); CREATININE - SERUM 0.9 mg/dL (0.6-1.3); GLUCOSE 103 mg/dL (74-106); MAGNESIUM - SERUM 1.8 mg/dL (1.8-2.4); PHOSPHOROUS 3.2 mg/dL (2.5-4.9); POTASSIUM - SERUM 4.2 mmol/L (3.5-5.1); PROTEIN - SERUM 6.5 g/dL (6.4-8.2); SODIUM 126 mmol/L (136-145); UREA NITROGEN 11 mg/dL (7-18); eGFR NON AFRICAN AMERICAN > 90 mL/min (90-120)
--- NOTE | 2018-08-27 07:17 | NUR ---
PT ASLEEP, AT BEDISDE, ALSO ASLEEP. DID NOT WAKE I ENTERED, DID NOT FURTHER DSITURB AT THIS TIME.
[2018-08-27 07:49] VITALS: BP 103/58
[2018-08-27 08:14] LABS: HEXAGONAL PHASE PHOS 15 sec (0-11); LUPUS - INTERPRETATION Comment: (()); LUPUS - THROMBIN TIME 15.8 sec (0.0-23.0); LUPUS - dRVVT 58.2 sec (0.0-47.0); PTT-LA 78.2 sec (0.0-51.9); PTT-LA MIX 62.3 sec (0.0-48.9)
[2018-08-27 08:16] LABS: INR 4.98 (0.85-1.17); PROTIME 45.4 SECONDS (11.6-15.0)
[2018-08-27 11:35] LABS: CKMB 1.5 U/L (0.0-3.6); CREATINE KINASE 67 UL (21-232); TROPONIN-I < 0.017 ng/mL (0.000-0.060)
[2018-08-27 12:16] VITALS: BP 106/55
[2018-08-27 15:38] VITALS: BP 104/68
[2018-08-27 16:48] LABS: CKMB 1.2 U/L (0.0-3.6); CREATINE KINASE 72 UL (21-232)
[2018-08-27 16:59] LABS: TROPONIN-I < 0.017 ng/mL (0.000-0.060)
--- NOTE | 2018-08-27 22:17 | NUR ---
PT ALERT AND ORIENTED SITTING UP IN BED WITH BIPAP ON. PT RR EVEN AND UNLABORED. PT DENIES ANY PAIN OR NEEDS AT THIS TIME. AT BEDSIDE. BED LOW CALL LIGHT WITHIN REACH. WILL CONTINUE TO MONITOR.
[2018-08-27 22:26] LABS: CKMB 1.1 U/L (0.0-3.6); CREATINE KINASE 66 UL (21-232)
[2018-08-27 22:28] LABS: TROPONIN-I < 0.017 ng/mL (0.000-0.060)
[2018-08-28] VITALS: BP 108/70
--- NOTE | 2018-08-28 02:05 | NUR ---
I have reviewed this patient and I concur with the Shift Assessment completed by the Licensed Practical Nurse today this shift.
[2018-08-28 04:00] VITALS: BP 148/68
[2018-08-28 05:19] LABS: BASOPHILS 0.3 % (0-2); EOSINOPHILS 3.9 % (0-7); HEMATOCRIT 25.5 % (42.0-54.0); HEMOGLOBIN 8.5 g/dL (13.5-17.5); LYMPHOCYTES 6.5 % (15-50); MCH 26.3 pg (26.0-34.0); MCHC 33.3 g/dL (31.0-37.0); MCV 78.9 fL (80.0-100.0); MEAN PLATELET VOLUME 8.5 fL (7.4-10.4); MONOCYTES 9.1 % (2-11); NEUTROPHILS 76.2 % (40-80); PLATELET COUNT 417 10x3/uL (130-400); RBC 3.23 10x6/uL (4.20-6.10); RDW 14.2 % (11.5-14.5); WBC 17.1 10x3/uL (4.8-10.8)
[2018-08-28 05:37] LABS: ALBUMIN 2.3 g/dL (3.4-5.0); ALKALINE PHOSPHATASE 83 U/L (46-116); ALT (SGPT) 39 U/L (10-68); BILIRUBIN - TOTAL 0.31 mg/dL (0.2-1.3); CALC OSMOLALITY 252 mosm/kg (275-300); CALCIUM 7.8 mg/dL (8.5-10.1); CARBON DIOXIDE 25.2 mmol/L (21.0-32.0); CHLORIDE - SERUM 92 mmol/L (98-107); CREATININE - SERUM 0.9 mg/dL (0.6-1.3); GLUCOSE 99 mg/dL (74-106); MAGNESIUM - SERUM 1.8 mg/dL (1.8-2.4); PROTEIN - SERUM 6.6 g/dL (6.4-8.2); SODIUM 126 mmol/L (136-145); UREA NITROGEN 12 mg/dL (7-18); eGFR NON AFRICAN AMERICAN > 90 mL/min (90-120)
--- NOTE | 2018-08-28 07:55 | NUR ---
ROUNDING DONE WITH PATIENT LAYING ON RIGHT SIDE WITH EYES CLOSED. RESP ARE EVEN, ON 6L PER HIGH FLOW. BIPAP IN ROOM. FEMALE MEMBER ASLEEP IN CHAIR. ON EP, K+ IS 4.0.
[2018-08-28 08:20] VITALS: BP 106/71
[2018-08-28 11:07] LABS: PROTEIN C - ANTIGEN 39 % (60-150); PROTEIN C - FUNCTIONAL 29 % (73-180)
[2018-08-28 12:10] VITALS: BP 110/68
--- NOTE | 2018-08-28 13:28 | NUR ---
FEMALE FAMILY MEMBER IN ROOM FOR PATIENT CARE, LINENS CHANGED.
[2018-08-28 14:52] VITALS: BP 110/64
--- NOTE | 2018-08-28 16:15 | NUR ---
PATIENT IS SITTING UP IN CHAIR AT THIS TIME WHILE DR HENDRICKSNO SEE HIM. PATIENT IS INFORMED BY DR HENDRICKSON TO WEAR HIS BIPAP AT NIGHT WHILE SLEEPING.
--- NOTE | 2018-08-28 17:50 | NUR ---
PATIENT STATES HE BROKE A TOOTH ON SOME SKITTLES.
--- NOTE | 2018-08-28 17:51 | NUR ---
NOCOR GIVEN FOR PAIN TO CHEST 12/31. PATIENT CHEWS HIS NORCOS.
--- NOTE | 2018-08-28 19:36 | NUR ---
EVENING ROUNDS COMPLETED. REPORT RECEIVED. PT SITTING UP IN BED WITH EYES CLOSED, RR EVEN AND UNLABORED. OXYGEN AT 6 LITERS BY HIGH FLOW NASAL CANNULA. AT BEDSIDE. NO S/S OF DISTRESS NOTED. INTRODUCED SELF TO PT. PT DENIES FURTHER NEEDS AT THIS TIME. CALL LIGHT IN REACH. WILL CTM.
[2018-08-28 20:30] VITALS: BP 118/65
[2018-08-29 00:54] VITALS: BP 118/78
--- NOTE | 2018-08-29 04:41 | NUR ---
I have reviewed this patient and I concur with the Shift Assessment completed by the Licensed Practical Nurse today this shift.
[2018-08-29 05:41] VITALS: BP 101/67
[2018-08-29 07:21] LABS: BASOPHILS 0.5 % (0-2); EOSINOPHILS 3.5 % (0-7); HEMATOCRIT 28.5 % (42.0-54.0); HEMOGLOBIN 9.5 g/dL (13.5-17.5); IMMATURE GRANULOCYTES 3.2 % (0-5); LYMPHOCYTES 7.2 % (15-50); MCH 26.5 pg (26.0-34.0); MCHC 33.3 g/dL (31.0-37.0); MCV 79.6 fL (80.0-100.0); MEAN PLATELET VOLUME 8.7 fL (7.4-10.4); MONOCYTES 7.9 % (2-11); NEUTROPHILS 77.7 % (40-80); PLATELET COUNT 490 10x3/uL (130-400); RBC 3.58 10x6/uL (4.20-6.10); RDW 14.3 % (11.5-14.5); WBC 15.5 10x3/uL (4.8-10.8)
[2018-08-29 07:28] LABS: ALBUMIN 2.5 g/dL (3.4-5.0); ALKALINE PHOSPHATASE 95 U/L (46-116); ALT (SGPT) 43 U/L (10-68); BILIRUBIN - TOTAL 0.29 mg/dL (0.2-1.3); CALC OSMOLALITY 253 mosm/kg (275-300); CALCIUM 8.4 mg/dL (8.5-10.1); CHLORIDE - SERUM 93 mmol/L (98-107); GLUCOSE 103 mg/dL (74-106); PROTEIN - SERUM 7.1 g/dL (6.4-8.2); SODIUM 127 mmol/L (136-145); UREA NITROGEN 11 mg/dL (7-18); eGFR NON AFRICAN AMERICAN 83 mL/min (90-120)
[2018-08-29 08:18] VITALS: BP 100/60
--- NOTE | 2018-08-29 08:47 | MORECARE ---
CASE MANAGEMENT DISCHARGE SUMMARY PATIENT: JAY BAKER UNIT: [id number] ADM DATE: 08/16/18 AGE: 52 : 65 SEX: M ROOM/BED: D.7235 AUTHOR: FABRICIO HERNNADEZ PHYSICIAN: REFERRING PHYSICIAN: ROSALINDA VILLAFUERTE MD DATE OF SERVICE: 08/29/18 Discharge Plan Patient Name: JAY BAKER Facility: [facility]:[place] : 1965 Planned Disposition: Home Anticipated Discharge Date: Discharge Date: Expected LOS: Initial Reviewer: [id number] Initial Review Date: 08/18/2018 Generated: 08/29/18 9:46 am Comments DCP- Discharge Planning Updated by [id number]: Brianna Luo on 08/29/18 7:[address] RECEIVED A CALL FROM STEPHON LILLY WITH [employer]. SHE STATED THEY WERE HAVING ISSUES WITH THE PATIENTS INSURANCE GOING THROUGH. I EXPLAINED THAT HIS BIRTHDATE IS WRONG AND THEY HAVE TO ENTER [birth year]. EXPLAINED THAT THE INSURANCE COMPANY IS AWARE OF THIS IS THE PATIENT, BUT WHAT THE PATIENT NEEDS TO FIX IT, HE WON'T BE ABLE TO GET UNTIL AFTER HE IS DISCHARGED. I DID SEND HER A COPY OF THE PATIENTS INSURANCE CARD PER HER REQUEST TO [phone]. DCP- Discharge Planning Updated by [id number]: Kimberly Chow on 08/26/18 1:[address] Patient Name: JAY BAKER Admission Status: Elective Accout number: [id number] Admission Date: 08-16-2018 : 1965 Admission Diagnosis:ACUTE RESPIRATORY FAILURE WITH HYPOXIA Attending: ROSALINDA VILLAFUERTE Current LOS: 10 Anticipated DC Date: Planned Disposition: Home Primary Insurance: WE[employer] MEDICARE ADV Discharge Planning Comments: CM MET WITH PATIENT, HE DOES NOT WANT SNF OR HH. PATIENT STATES ONLY PROBLEM IS SOB AND HE HAS FAMILY THAT LIVES WITH HIM. CM WILL WORK ON GETTING PATIENT TRILOGY BEFORE DISCHARGE. Economic History Teacher: Kimberly Chow Appended by Kimberly Chow on 08/26/2018 14:49 CDT: DOCUMENTS SENT TO [facility] AT FAX [phone] FOR TRILOGY. [facility] PHONE NUMBER IS [phone]. DCP- Discharge Planning Updated by [email or web address]: Margaret Jose A on 08/18/18 1:[address] Patient Name: JAY BAKER Admission Status: Elective Accout number: [id number] Admission Date: 08-16-2018 : 1965 Admission Diagnosis:ACUTE RESPIRATORY FAILURE WITH HYPOXIA Attending: ROSALINDA VILLAFUERTE Current LOS: 2 Anticipated DC Date: Planned Disposition: Home Primary Insurance: MEDICARE A & B Discharge Planning Comments: CM met with patient at bedside. Patient states he lives at home with his girlfriend ( Kristy). He plans on returning to their home upon discharge. He states he feels safe at his home. He states he has a administrative assistant data entry that he is suppose to wear. He states that it doesn't picking belt operator where he lives. Patient may need home 02 upon discharge if he does require home 02 then he will need walk test. He states he will have family drive him home upon discharge. He denies any discharge needs at this time. CM will continue to follow and assist as needed with discharge planning / needs. Economic History Teacher: Margaret Naranjo DCPIA - Discharge Planning Initial Assessment Updated by [email or web address]: Margaret Jose A on 08/18/18 2:45 pm * Is the patient Alert and Oriented? Yes * How many steps to enter\exit or inside your home? * PCP Kash * Pharmacy [place] * Preadmission Environment Home with Family * ADLs Independent * Equipment Monitor Cardiac * Other Equipment patient states he is suppose to use a administrative assistant data entry but it doesn't picking belt operator at his home * List name and contact numbers for known caregivers / representatives who currently or will assist patient after discharge: Kristy Amor - girlfriend- [phone] * Verbal permission to speak to the caregivers and representatives has been obtained from the patient. N/A * Community resources currently utilized None * Additional services required to return to the preadmission environment? No * Can the patient safely return to the preadmission environment? Yes * Has this patient been hospitalized within the prior 30 days at any hospital? Yes Last DP export: 08/26/18 3:21 pm Patient Name: JAY BAKER Page 48023 at 0847 All edits/amendments must be made on the electronic document DICTATION DATE: 08/29/18845 DRAFTER LANDSCAPE: ALFONSO 08/29/18845 RPT#: [id number] DC DATE: STATUS: ADM IN [facility] [address] [facility] [place] [address] END OF REPORT
--- NOTE | 2018-08-29 12:08 | MORECARE ---
CASE MANAGEMENT DISCHARGE SUMMARY PATIENT: JAY BAKER UNIT: [id number] ADM DATE: 08/16/18 AGE: 52 : 65 SEX: M ROOM/BED: D.7646 AUTHOR: FABRICIO HERNANDEZ PHYSICIAN: REFERRING PHYSICIAN: ROSALINDA VILLAFUERTE MD DATE OF SERVICE: 08/29/18 Discharge Plan Patient Name: JAY BAKER Facility: [facility]:[place] : 1965 Planned Disposition: Home Anticipated Discharge Date: Discharge Date: Expected LOS: Initial Reviewer: [email or web address] Initial Review Date: 08/18/2018 Generated: 08/29/18 1:08 pm Comments DCP- Discharge Planning Updated by [id number]: Brianna Luo on 08/29/18 7:[address] RECEIVED A CALL FROM STEPHON LILLY WITH [email or web address]. SHE STATED THEY WERE HAVING ISSUES WITH THE PATIENTS INSURANCE GOING THROUGH. I EXPLAINED THAT HIS BIRTHDATE IS WRONG AND THEY HAVE TO ENTER 65. EXPLAINED THAT THE INSURANCE COMPANY IS AWARE OF THIS IS THE PATIENT, BUT WHAT THE PATIENT NEEDS TO FIX IT, HE WON'T BE ABLE TO GET UNTIL AFTER HE IS DISCHARGED. I DID SEND HER A COPY OF THE PATIENTS INSURANCE CARD PER HER REQUEST TO [phone]. DCP- Discharge Planning Updated by [email or web address]: Kimberly Chow on 08/26/18 1:[address] Patient Name: JAY BAKER Admission Status: Elective Accout number: [id number] Admission Date: 08-16-2018 : 1965 Admission Diagnosis:ACUTE RESPIRATORY FAILURE WITH HYPOXIA Attending: ROSALINDA VILLAFUERTE Current LOS: 10 Anticipated DC Date: Planned Disposition: Home Primary Insurance: WELL[employer] MEDICARE ADV Discharge Planning Comments: CM MET WITH PATIENT, HE DOES NOT WANT SNF OR HH. PATIENT STATES ONLY PROBLEM IS SOB AND HE HAS FAMILY THAT LIVES WITH HIM. CM WILL WORK ON GETTING PATIENT TRILOGY BEFORE DISCHARGE. Curriculum Counselor: Kimberly Chow Appended by Kimberly Chow on 08/26/2018 14:49 CDT: DOCUMENTS SENT TO [facility] AT FAX [phone] FOR TRILOGY. [facility] PHONE NUMBER IS [phone]. DCP- Discharge Planning Updated by [email or web address]: Margaret Jose A on 08/18/18 1:[address] Patient Name: JAY BAKER Admission Status: Elective Accout number: [id number] Admission Date: 08-16-2018 : 1965 Admission Diagnosis:ACUTE RESPIRATORY FAILURE WITH HYPOXIA Attending: ROSALINDA VILLAFUERTE Current LOS: 2 Anticipated DC Date: Planned Disposition: Home Primary Insurance: MEDICARE A & B Discharge Planning Comments: CM met with patient at bedside. Patient states he lives at home with his girlfriend ( Kristy). He plans on returning to their home upon discharge. He states he feels safe at his home. He states he has a quality assurance monitor chassis that he is suppose to wear. He states that it doesn't bean picker machine operator where he lives. Patient may need home 02 upon discharge if he does require home 02 then he will need walk test. He states he will have family drive him home upon discharge. He denies any discharge needs at this time. CM will continue to follow and assist as needed with discharge planning / needs. Curriculum Counselor: Margaret Naranjo DCPIA - Discharge Planning Initial Assessment Updated by [email or web address]: Margaret Jose A on 08/18/18 2:45 pm * Is the patient Alert and Oriented? Yes * How many steps to enter\exit or inside your home? * PCP Kash * Pharmacy [place] * Preadmission Environment Home with Family * ADLs Independent * Equipment Monitor Cardiac * Other Equipment patient states he is suppose to use a quality assurance monitor chassis but it doesn't bean picker machine operator at his home * List name and contact numbers for known caregivers / representatives who currently or will assist patient after discharge: Kristy Amor - girlfriend- [phone] * Verbal permission to speak to the caregivers and representatives has been obtained from the patient. N/A * Community resources currently utilized None * Additional services required to return to the preadmission environment? No * Can the patient safely return to the preadmission environment? Yes * Has this patient been hospitalized within the prior 30 days at any hospital? Yes External Providers External Provider: OTHER-OTHER Next Contact Date: Service Request Date: Service Type: Resolution: Reviewer: Comments: Last DP export: 08/29/18 7:47 am Patient Name: JAY BAKER Page 84838 at 1208 All edits/amendments must be made on the electronic document DICTATION DATE: 08/29/181206 MARKETING SUPPORT SPECIALIST: ALFONSO 08/29/181206 RPT#: [id number] DC DATE: STATUS: ADM IN [facility] [address] [place] [address] END OF REPORT
--- NOTE | 2018-08-29 12:24 | MORECARE ---
CASE MANAGEMENT DISCHARGE SUMMARY PATIENT: JAY BAKER UNIT: [id number] ADM DATE: 08/16/18 AGE: 52 : 65 SEX: M ROOM/BED: D.2139 AUTHOR: MARY,DOC PHYSICIAN: REFERRING PHYSICIAN: ROSALINDA VILLAFUERTE MD DATE OF SERVICE: 08/29/18 Discharge Plan Patient Name: JAY BAKER [facility] [facility] 1965 Planned Disposition: Home Anticipated Discharge Date: Discharge Date: Expected LOS: Initial Reviewer: [email or web address] Initial Review Date: 08/18/2018 Generated: 08/29/18 1:24 pm Comments DCP- Discharge Planning Updated by [email or web address]: Brianna Luo on 08/29/18 11:[address] PER WALK TESTING, PATIENT WILL REQUIRE HOME AND PORTALBE OXYGEN. I MET IN ROOM TO HAVE CHELSEA SIGNED, AND THEY HAVE EXPRESSED THEY DO NOT WANT LINCARE, STATED THEY ARE HAVING ISSUES WITH THEM IN REGARDS TO THEIR SON'S OXYGEN. I [facility]ED [facility] ([facility] [phone]) AND THEY DO NOT DO OXYGEN. SPOKE WITH THEM AGAIN AND THEIR SECOND CHOICE OF [facility]. I CALLED [phone] AND THEY DO DELIVER OXYGEN, AND I WAS TOLD THEY HAVE A LOCAL OFFICE THAT CAN DELIVER THE PORTABLE. I FAXED ALL REQUESTED INFORMATION TO [phone], I HAVE INCLUDED A COPY OF HIS INSURANCE CARD AND AN EXPLINATION ABOUT HIS BIRTHDAY. WILL WAIT TO SEE IF FURTHER ACTION IS REQUIRED TO GET HIS OXYGEN. DCP- Discharge Planning Updated by [email or web address]: Brianna Luo on 08/29/18 7:[address] RECEIVED A CALL FROM STEPHON LILLY WITH [employer]. SHE STATED THEY WERE HAVING ISSUES WITH THE PATIENTS INSURANCE GOING THROUGH. I EXPLAINED THAT HIS BIRTHDATE IS WRONG AND THEY HAVE TO ENTER [birth year]. EXPLAINED THAT THE INSURANCE COMPANY IS AWARE OF THIS IS THE PATIENT, BUT WHAT THE PATIENT NEEDS TO FIX IT, HE WON'T BE ABLE TO GET UNTIL AFTER HE IS DISCHARGED. I DID SEND HER A COPY OF THE PATIENTS INSURANCE CARD PER HER REQUEST TO [phone]. DCP- Discharge Planning Updated by [email or web address]: Kimberlykendrick Chow on 08/26/18 1:[address] Patient Name: JAY BAKER Admission Status: Elective Accout number: [id number] Admission Date: 08-16-2018 : 1965 Admission Diagnosis:ACUTE RESPIRATORY FAILURE WITH HYPOXIA Attending: ROSALINDA VILLAFUERTE Current LOS: 10 Anticipated DC Date: Planned Disposition: Home Primary Insurance: WELL[employer] MEDICARE ADV Discharge Planning Comments: CM MET WITH PATIENT, HE DOES NOT WANT SNF OR HH. PATIENT STATES ONLY PROBLEM IS SOB AND HE HAS FAMILY THAT LIVES WITH HIM. CM WILL WORK ON GETTING PATIENT TRILOGY BEFORE DISCHARGE. Photo Mask Inspector: Kimberly Chow Appended by Kimberly Chow on 08/26/2018 14:49 CDT: DOCUMENTS SENT TO [facility] AT FAX [phone] FOR TRILOGY. [facility] PHONE NUMBER IS [phone]. DCP- Discharge Planning Updated by [email or web address]: Margaret Naranjo on 08/18/18 1:[address] Patient Name: JAY BAKER Admission Status: Elective Accout number: [id number] Admission Date: 08-16-2018 : 1965 Admission Diagnosis:ACUTE RESPIRATORY FAILURE WITH HYPOXIA Attending: ROSALINDA VILLAFUERTE Current LOS: 2 Anticipated DC Date: Planned Disposition: Home Primary Insurance: MEDICARE A & B Discharge Planning Comments: CM met with patient at bedside. Patient states he lives at home with his girlfriend ( Kristy). He plans on returning to their home upon discharge. He states he feels safe at his home. He states he has a cardiac monitor technician that he is suppose to wear. He states that it doesn't cone picker where he lives. Patient may need home 02 upon discharge if he does require home 02 then he will need walk test. He states he will have family drive him home upon discharge. He denies any discharge needs at this time. CM will continue to follow and assist as needed with discharge planning / needs. Photo Mask Inspector: Margaret Naranjo DCPIA - Discharge Planning Initial Assessment Updated by [id number]: Margaret Naranjo on 08/18/18 2:45 pm * Is the patient Alert and Oriented? Yes * How many steps to enter\exit or inside your home? * PCP Kash * Pharmacy [place] * Preadmission Environment Home with Family * ADLs Independent * Equipment Monitor Cardiac * Other Equipment patient states he is suppose to use a cardiac monitor technician but it doesn't cone picker at his home * List name and contact numbers for known caregivers / representatives who currently or will assist patient after discharge: Kristy Amor - girlfriend- [phone] * Verbal permission to speak to the caregivers and representatives has been obtained from the patient. N/A * Community resources currently utilized None * Additional services required to return to the preadmission environment? No * Can the patient safely return to the preadmission environment? Yes * Has this patient been hospitalized within the prior 30 days at any hospital? Yes Coverage Notice Reviewer: [id number] Anne Luo Notice Issued Date-Time: 08/29/2018 11:38 Notice Type: Patient Choice Letter Notice Delivered To: Family Member Relationship to Patient: Spouse Plant Assigner Name: Delivery Method: - Stephanie Days: Prior Verbal Notification: Recipient Understood Notice: Recipient Signature: Med Rec Note Co-signed by Attending: Coverage Notice Comment: Last DP export: 08/29/18 11:08 am Patient Name: JAY BAKER Page 07976 at 1224 All edits/amendments must be made on the electronic document DICTATION DATE: 08/29/181223 IMPREGNATOR CARBON PRODUCTS: ALFONSO 08/29/18 122 RPT#: [id number] DC DATE: STATUS: ADM IN [facility] [address] [place] [address] END OF REPORT
[2018-08-29 13:08] VITALS: BP 108/66
--- NOTE | 2018-08-29 13:47 | MORECARE ---
CASE MANAGEMENT DISCHARGE SUMMARY PATIENT: JAY BAKER UNIT: [id number] ADM DATE: 08/16/18 AGE: 52 : 65 SEX: M ROOM/BED: D.2139 AUTHOR: MARY,DOC PHYSICIAN: REFERRING PHYSICIAN: ROSALINDA VILLAFUERTE MD DATE OF SERVICE: 08/29/18 Discharge Plan Patient Name: JAY BAKER Facility: [facility]:[place] : 1965 Planned Disposition: Home Anticipated Discharge Date: 08/30/18 Discharge Date: Expected LOS: 14 Initial Reviewer: [email or web address] Initial Review Date: 08/18/2018 Generated: 08/29/18 2:47 pm Comments DCP- Discharge Planning Updated by [id number]: Brianna Luo on 08/29/18 11:[address] PER WALK TESTING, PATIENT WILL REQUIRE HOME AND PORTALBE OXYGEN. I MET IN ROOM TO HAVE CHELSEA SIGNED, AND THEY HAVE EXPRESSED THEY DO NOT WANT LINCARE, STATED THEY ARE HAVING ISSUES WITH THEM IN REGARDS TO THEIR SON'S OXYGEN. [facility] [phone]) AND THEY DO NOT DO OXYGEN. SPOKE WITH THEM AGAIN AND THEIR SEC[facility] CHOICE OF [facility]. I CALLED [phone] AND THEY DO DELIVER OXYGEN, AND I WAS TOLD THEY HAVE A LOCAL OFFICE THAT CAN DELIVER THE PORTABLE. I FAXED ALL REQUESTED INFORMATION TO [phone], I HAVE INCLUDED A COPY OF HIS INSURANCE CARD AND AN EXPLINATION ABOUT HIS BIRTHDAY. WILL WAIT TO SEE IF FURTHER ACTION IS REQUIRED TO GET HIS OXYGEN. DCP- Discharge Planning Updated by [email or web address]: Brianna Luo on 08/29/18 7:[address] RECEIVED A CALL FROM STEPHON LILLY WITH [employer]. SHE STATED THEY WERE HAVING ISSUES WITH THE PATIENTS INSURANCE GOING THROUGH. I EXPLAINED THAT HIS BIRTHDATE IS WRONG AND THEY HAVE TO ENTER [birth year]. EXPLAINED THAT THE INSURANCE COMPANY IS AWARE OF THIS IS THE PATIENT, BUT WHAT THE PATIENT NEEDS TO FIX IT, HE WON'T BE ABLE TO GET UNTIL AFTER HE IS DISCHARGED. I DID SEND HER A COPY OF THE PATIENTS INSURANCE CARD PER HER REQUEST TO [phone]. DCP- Discharge Planning Updated by [id number]: Kimberlykendrick Chow on 08/26/18 1:[address] Patient Name: JAY BAKER Admission Status: Elective Accout number: [id number] Admission Date: 08-16-2018 : 1965 Admission Diagnosis:ACUTE RESPIRATORY FAILURE WITH HYPOXIA Attending: ROSALINDA VILLAFUERTE Current LOS: 10 Anticipated DC Date: Planned Disposition: Home Primary Insurance: WELL[employer] MEDICARE ADV Discharge Planning Comments: CM MET WITH PATIENT, HE DOES NOT WANT SNF OR HH. PATIENT STATES ONLY PROBLEM IS SOB AND HE HAS FAMILY THAT LIVES WITH HIM. CM WILL WORK ON GETTING PATIENT TRILOGY BEFORE DISCHARGE. Roller Printing Supervisor: Kimberly Chow Appended by Kimberly Chow on 08/26/2018 14:49 CDT: DOCUMENTS SENT TO [facility] AT FAX [phone] FOR TRILOGY. [facility] PHONE NUMBER IS [phone]. DCP- Discharge Planning Updated by [email or web address]: Margaret Naranjo on 08/18/18 1:[address] Patient Name: JAY BAKER Admission Status: Elective Accout number: [id number] Admission Date: 08-16-2018 : 1965 Admission Diagnosis:ACUTE RESPIRATORY FAILURE WITH HYPOXIA Attending: ROSALINDA VILLAFUERTE Current LOS: 2 Anticipated DC Date: Planned Disposition: Home Primary Insurance: MEDICARE A & B Discharge Planning Comments: CM met with patient at bedside. Patient states he lives at home with his girlfriend ( Kristy). He plans on returning to their home upon discharge. He states he feels safe at his home. He states he has a quality assurance monitor final that he is suppose to wear. He states that it doesn't bead picker where he lives. Patient may need home 02 upon discharge if he does require home 02 then he will need walk test. He states he will have family drive him home upon discharge. He denies any discharge needs at this time. CM will continue to follow and assist as needed with discharge planning / needs. Roller Printing Supervisor: Margaret Naranjo DCPIA - Discharge Planning Initial Assessment Updated by [email or web address]: Margaret Naranjo on 08/18/18 2:45 pm * Is the patient Alert and Oriented? Yes * How many steps to enter\exit or inside your home? * PCP Kash * Pharmacy [place] * Preadmission Environment Home with Family * ADLs Independent * Equipment Monitor Cardiac * Other Equipment patient states he is suppose to use a quality assurance monitor final but it doesn't bead picker at his home * List name and contact numbers for known caregivers / representatives who currently or will assist patient after discharge: Kristy Amor - girlfriend- [phone] * Verbal permission to speak to the caregivers and representatives has been obtained from the patient. N/A * Community resources currently utilized None * Additional services required to return to the preadmission environment? No * Can the patient safely return to the preadmission environment? Yes * Has this patient been hospitalized within the prior 30 days at any hospital? Yes Coverage Notice Reviewer: [email or web address] Anne Luo Notice Issued Date-Time: 08/29/2018 11:38 Notice Type: Patient Choice Letter Notice Delivered To: Family Member Relationship to Patient: Spouse Edi Programmer Name: Delivery Method: - Stephanie Days: Prior Verbal Notification: Recipient Understood Notice: Recipient Signature: Med Rec Note Co-signed by Attending: Coverage Notice Comment: Reviewer: [email or web address] - Jl Jiménez Notice Issued Date-Time: 08/29/2018 13:30 Notice Type: IM Discharge Notice Notice Delivered To: Patient Relationship to Patient: Edi Programmer Name: Delivery Method: HAND - Hand Delivered Stephanie Days: Prior Verbal Notification: Recipient Understood Notice: Yes Recipient Signature: Yes Med Rec Note Co-signed by Attending: Coverage Notice Comment: Last DP export: 08/29/18 11:24 am Patient Name: JAY BAKER Page 07301 at 1347 All edits/amendments must be made on the electronic document DICTATION DATE: 08/29/18 1346 FIELD CASE MANAGER: ALFONSO 08/29/18 1346 RPT#: [id number] DC DATE: STATUS: ADM IN [facility] [address] [place] [address] END OF REPORT
--- NOTE | 2018-08-29 13:57 | MORECARE ---
CASE MANAGEMENT DISCHARGE SUMMARY PATIENT: JAY BAKER UNIT: [id number] ADM DATE: 08/16/18 AGE: 52 : 65 SEX: M ROOM/BED: D.2139 AUTHOR: MARY,DOC PHYSICIAN: REFERRING PHYSICIAN: ROSALINDA VILLAFUERTE MD DATE OF SERVICE: 08/29/18 Discharge Plan Patient Name: JAY BAKER Facility: [facility]:[place] : 1965 Planned Disposition: Home Anticipated Discharge Date: 08/30/18 Discharge Date: Expected LOS: 14 Initial Reviewer: [id number] Initial Review Date: 08/18/2018 Generated: 08/29/18 2:57 pm Comments DCP- Discharge Planning Updated by [email or web address]: Jl Jiménez on 08/29/18 12:[address] Patient Name: JAY BAKER Encounter No: [id number] : 1965 Primary Insurance: [email or web address] MEDICARE ADV Anticipated DC Date: 08-30-2018 Planned Disposition: Home DCP follow-up note: CM MET WITH PT IN ROOM TO DISCUSS DISCHARGE NEEDS AND PLANNING. CM DISCUSSED AVAILABILITY OF HOME HEALTH, REHAB SERVICES AND MEDICAL EQUIPMENT. PT REPORTS THE OTHER FOREST FIRE PREVENTION MANAGER IS WORKING ON A TRILOGY AND OXYGEN FOR HIM TO GO HOME TODAY. PT REPORTS HAVING HIS BROTHER COMING TO PICK HE AND HIS GIRLFRIEND UP TODAY. PT DENIES NEED OF REHAB, OTHER MEDICAL EQUIPMENT OR HOME HEALTH. PT IS WAITING HOSPITAL DELIVERY OF TRILOGY AND PORTABLE OXYGEN FOR DISCHARGE HOME TODAY. PT'S BROTHER TO PSYCHOTHERAPIST SOCIAL WORKER PT TODAY, PT DENIES FURHTER NEEDS. Jl Jiménez, CASE MANAGEMENT DCP- Discharge Planning Updated by [email or web address]: Brianna Luo on 08/29/18 11:[address] PER WALK TESTING, PATIENT WILL REQUIRE HOME AND PORTALBE OXYGEN. I MET IN ROOM TO HAVE CHELSEA SIGNED, AND THEY HAVE EXPRESSED THEY DO NOT WANT LINCARE, STATED THEY ARE HAVING ISSUES WITH THEM IN REGARDS TO THEIR SON'S OXYGEN. I CALLED [facility] ([employer] [facility] [phone]) AND THEY DO NOT DO OXYGEN. SPOKE WITH THEM AGAIN AND THEIR SECOND CHOICE OF [facility]. I CALLED [phone] AND THEY DO DELIVER OXYGEN, AND I WAS TOLD THEY HAVE A LOCAL OFFICE THAT CAN DELIVER THE PORTABLE. I FAXED ALL REQUESTED INFORMATION TO [phone], I HAVE INCLUDED A COPY OF HIS INSURANCE CARD AND AN EXPLINATION ABOUT HIS BIRTHDAY. WILL WAIT TO SEE IF FURTHER ACTION IS REQUIRED TO GET HIS OXYGEN. DCP- Discharge Planning Updated by [id number]: Brianna Luo on 08/29/18 7:[address] RECEIVED A CALL FROM STEPHON LILLY WITH [employer]. SHE STATED THEY WERE HAVING ISSUES WITH THE PATIENTS INSURANCE GOING THROUGH. I EXPLAINED THAT HIS BIRTHDATE IS WRONG AND THEY HAVE TO ENTER [birth year]. EXPLAINED THAT THE INSURANCE COMPANY IS AWARE OF THIS IS THE PATIENT, BUT WHAT THE PATIENT NEEDS TO FIX IT, HE WON'T BE ABLE TO GET UNTIL AFTER HE IS DISCHARGED. I DID SEND HER A COPY OF THE PATIENTS INSURANCE CARD PER HER REQUEST TO [phone]. DCP- Discharge Planning Updated by [email or web address]: Kimberly Chow on 08/26/18 1:[address] Patient Name: JAY BAKER Admission Status: Elective Accout number: [id number] Admission Date: 08-16-2018 : 1965 Admission Diagnosis:ACUTE RESPIRATORY FAILURE WITH HYPOXIA Attending: ROSALINDA VILLAFUERTE Current LOS: 10 Anticipated DC Date: Planned Disposition: Home Primary Insurance: [employer] MEDICARE ADV Discharge Planning Comments: CM MET WITH PATIENT, HE DOES NOT WANT SNF OR HH. PATIENT STATES ONLY PROBLEM IS SOB AND HE HAS FAMILY THAT LIVES WITH HIM. CM WILL WORK ON GETTING PATIENT TRILOGY BEFORE DISCHARGE. Casino Cage Cashier: Kimberly Chow Appended by Kimberly Chow on 08/26/2018 14:49 CDT: DOCUMENTS SENT TO [employer] [facility] AT FAX [phone] FOR TRILOGY. [facility] PHONE NUMBER IS [phone]. DCP- Discharge Planning Updated by [email or web address]: Margaret Naranjo on 08/18/18 1:[address] Patient Name: JAY BAKER Admission Status: Elective Accout number: [id number] Admission Date: 08-16-2018 : 1965 Admission Diagnosis:ACUTE RESPIRATORY FAILURE WITH HYPOXIA Attending: ROSALINDA VILLAFUERTE Current LOS: 2 Anticipated DC Date: Planned Disposition: Home Primary Insurance: MEDICARE A & B Discharge Planning Comments: CM met with patient at bedside. Patient states he lives at home with his girlfriend ( Kristy). He plans on returning to their home upon discharge. He states he feels safe at his home. He states he has a front desk monitor that he is suppose to wear. He states that it doesn't leaf size picker where he lives. Patient may need home 02 upon discharge if he does require home 02 then he will need walk test. He states he will have family drive him home upon discharge. He denies any discharge needs at this time. CM will continue to follow and assist as needed with discharge planning / needs. Casino Cage Cashier: Margaret Naranjo DCPIA - Discharge Planning Initial Assessment Updated by [id number]: Margaret Naranjo on 08/18/18 2:45 pm * Is the patient Alert and Oriented? Yes * How many steps to enter\exit or inside your home? * PCP Kash * Pharmacy [place] * Preadmission Environment Home with Family * ADLs Independent * Equipment Monitor Cardiac * Other Equipment patient states he is suppose to use a front desk monitor but it doesn't leaf size picker at his home * List name and contact numbers for known caregivers / representatives who currently or will assist patient after discharge: Kristy Amor - girlfriend- [phone] * Verbal permission to speak to the caregivers and representatives has been obtained from the patient. N/A * Community resources currently utilized None * Additional services required to return to the preadmission environment? No * Can the patient safely return to the preadmission environment? Yes * Has this patient been hospitalized within the prior 30 days at any hospital? Yes Coverage Notice Reviewer: [id number] - Brianna Luo Notice Issued Date-Time: 08/29/2018 11:38 Notice Type: Patient Choice Letter Notice Delivered To: Family Member Relationship to Patient: Spouse Commercial Makeup Artist Name: Delivery Method: - Stephanie Days: Prior Verbal Notification: Recipient Understood Notice: Recipient Signature: Med Rec Note Co-signed by Attending: Coverage Notice Comment: Reviewer: [id number] - Jl Jiménez Notice Issued Date-Time: 08/29/2018 13:30 Notice Type: IM Discharge Notice Notice Delivered To: Patient Relationship to Patient: Commercial Makeup Artist Name: Delivery Method: HAND - Hand Delivered Stephanie Days: Prior Verbal Notification: Recipient Understood Notice: Yes Recipient Signature: Yes Med Rec Note Co-signed by Attending: Coverage Notice Comment: Last DP export: 08/29/18 12:47 pm Patient Name: JAY BAKER Page 41241 at 1357 All edits/amendments must be made on the electronic document DICTATION DATE: 08/29/181356 CORPORATE HUMAN RESOURCES MANAGER: ALFONSO 08/29/187 RPT#: [id number] DC DATE: STATUS: ADM IN [facility] [address] [place] [address] END OF REPORT
--- NOTE | 2018-08-29 14:48 | MORECARE ---
CASE MANAGEMENT DISCHARGE SUMMARY PATIENT: JAY BAKER UNIT: [id number] ADM DATE: 08/16/18 AGE: 52 : 65 SEX: M ROOM/BED: D.2139 AUTHOR: MARY,DOC PHYSICIAN: REFERRING PHYSICIAN: ROSALINDA VILLAFUERTE MD DATE OF SERVICE: 08/29/18 Discharge Plan Patient Name: JAY BAKER Facility: [facility]:[place] : 1965 Planned Disposition: Home Anticipated Discharge Date: 08/30/18 Discharge Date: Expected LOS: 14 Initial Reviewer: [id number] Initial Review Date: 08/18/2018 Generated: 08/29/18 3:48 pm Comments DCP- Discharge Planning Updated by [email or web address]: Jl Jiménez on 08/29/18 12:[address] Patient Name: JAY BAKER Encounter No: [id number] : 1965 Primary Insurance: [employer] MEDICARE ADV Anticipated DC Date: 08-30-2018 Planned Disposition: Home DCP follow-up note: CM MET WITH PT IN ROOM TO DISCUSS DISCHARGE NEEDS AND PLANNING. CM DISCUSSED AVAILABILITY OF HOME HEALTH, REHAB SERVICES AND MEDICAL EQUIPMENT. PT REPORTS THE OTHER PRODUCT SUPPORT CONSULTANT IS WORKING ON A TRILOGY AND OXYGEN FOR HIM TO GO HOME TODAY. PT REPORTS HAVING HIS BROTHER COMING TO PICK HE AND HIS GIRLFRIEND UP TODAY. PT DENIES NEED OF REHAB, OTHER MEDICAL EQUIPMENT OR HOME HEALTH. PT IS WAITING HOSPITAL DELIVERY OF TRILOGY AND PORTABLE OXYGEN FOR DISCHARGE HOME TODAY. PT'S BROTHER TO CYBER DEFENSE FORENSICS ANALYST PT TODAY, PT DENIES FURHTER NEEDS. Jl Jiménez, CASE MANAGEMENT DCP- Discharge Planning Updated by [id number]: Brianna Luo on 08/29/18 11:[address] PER WALK TESTING, PATIENT WILL REQUIRE HOME AND PORTALBE OXYGEN. I MET IN ROOM TO HAVE CHELSEA SIGNED, AND THEY HAVE EXPRESSED THEY DO NOT WANT LINCARE, STATED THEY ARE HAVING ISSUES WITH THEM IN REGARDS TO THEIR SON'S OXYGEN. I CALLED [facility] ([employer] [facility] [phone]) AND THEY DO NOT DO OXYGEN. SPOKE WITH THEM AGAIN AND THEIR SECOND CHOICE OF [facility]. I CALLED [phone] AND THEY DO DELIVER OXYGEN, AND I WAS TOLD THEY HAVE A LOCAL OFFICE THAT CAN DELIVER THE PORTABLE. I FAXED ALL REQUESTED INFORMATION TO [phone], I HAVE INCLUDED A COPY OF HIS INSURANCE CARD AND AN EXPLINATION ABOUT HIS BIRTHDAY. WILL WAIT TO SEE IF FURTHER ACTION IS REQUIRED TO GET HIS OXYGEN. DCP- Discharge Planning Updated by [id number]: Brianna Luo on 08/29/18 7:[address] RECEIVED A CALL FROM STEPHON LILLY WITH [employer]. SHE STATED THEY WERE HAVING ISSUES WITH THE PATIENTS INSURANCE GOING THROUGH. I EXPLAINED THAT HIS BIRTHDATE IS WRONG AND THEY HAVE TO ENTER [birth year]. EXPLAINED THAT THE INSURANCE COMPANY IS AWARE OF THIS IS THE PATIENT, BUT WHAT THE PATIENT NEEDS TO FIX IT, HE WON'T BE ABLE TO GET UNTIL AFTER HE IS DISCHARGED. I DID SEND HER A COPY OF THE PATIENTS INSURANCE CARD PER HER REQUEST TO [phone]. DCP- Discharge Planning Updated by [email or web address]: Kimberly Chow on 08/26/18 1:[address] Patient Name: JAY BAKER Admission Status: Elective Accout number: [id number] Admission Date: 08-16-2018 : 1965 Admission Diagnosis:ACUTE RESPIRATORY FAILURE WITH HYPOXIA Attending: ROSALINDA VILLAFUERTE Current LOS: 10 Anticipated DC Date: Planned Disposition: Home Primary Insurance: [employer] MEDICARE ADV Discharge Planning Comments: CM MET WITH PATIENT, HE DOES NOT WANT SNF OR HH. PATIENT STATES ONLY PROBLEM IS SOB AND HE HAS FAMILY THAT LIVES WITH HIM. CM WILL WORK ON GETTING PATIENT TRILOGY BEFORE DISCHARGE. Cath Lab Radiological Technologist: Kimberly Chow Appended by Kimberly Chow on 08/26/2018 14:49 CDT: DOCUMENTS SENT TO [employer] AT FAX [phone] FOR TRILOGY. [employer] PHONE NUMBER IS [phone]. DCP- Discharge Planning Updated by [id number]: Margaret Naranjo on 08/18/18 1:[address] Patient Name: JAY BAKER Admission Status: Elective Accout number: [id number] Admission Date: 08-16-2018 : 1965 Admission Diagnosis:ACUTE RESPIRATORY FAILURE WITH HYPOXIA Attending: ROSALINDA VILLAFUERTE Current LOS: 2 Anticipated DC Date: Planned Disposition: Home Primary Insurance: MEDICARE A & B Discharge Planning Comments: CM met with patient at bedside. Patient states he lives at home with his girlfriend ( Kristy). He plans on returning to their home upon discharge. He states he feels safe at his home. He states he has a athletic monitor that he is suppose to wear. He states that it doesn't miner pick where he lives. Patient may need home 02 upon discharge if he does require home 02 then he will need walk test. He states he will have family drive him home upon discharge. He denies any discharge needs at this time. CM will continue to follow and assist as needed with discharge planning / needs. Cath Lab Radiological Technologist: Margaret Naranjo DCPIA - Discharge Planning Initial Assessment Updated by [id number]: Margaret Naranjo on 08/18/18 2:45 pm * Is the patient Alert and Oriented? Yes * How many steps to enter\exit or inside your home? * PCP Kash * Pharmacy [place] * Preadmission Environment Home with Family * ADLs Independent * Equipment Monitor Cardiac * Other Equipment patient states he is suppose to use a athletic monitor but it doesn't miner pick at his home * List name and contact numbers for known caregivers / representatives who currently or will assist patient after discharge: Kristy Amor - girlfriend- [phone] * Verbal permission to speak to the caregivers and representatives has been obtained from the patient. N/A * Community resources currently utilized None * Additional services required to return to the preadmission environment? No * Can the patient safely return to the preadmission environment? Yes * Has this patient been hospitalized within the prior 30 days at any hospital? Yes Coverage Notice Reviewer: [id number] - Brianna Luo Notice Issued Date-Time: 08/29/2018 11:38 Notice Type: Patient Choice Letter Notice Delivered To: Family Member Relationship to Patient: Spouse Data Analysis Manager Name: Delivery Method: - Tsephanie Days: Prior Verbal Notification: Recipient Understood Notice: Recipient Signature: Med Rec Note Co-signed by Attending: Coverage Notice Comment: Reviewer: [id number] - Jl Jiménez Notice Issued Date-Time: 08/29/2018 13:30 Notice Type: IM Discharge Notice Notice Delivered To: Patient Relationship to Patient: Data Analysis Manager Name: Delivery Method: HAND - Hand Delivered Stephanie Days: Prior Verbal Notification: Recipient Understood Notice: Yes Recipient Signature: Yes Med Rec Note Co-signed by Attending: Coverage Notice Comment: Last DP export: 08/29/18 12:57 pm Patient Name: JAY BAKER Page 05851 at 1448 All edits/amendments must be made on the electronic document DICTATION DATE: 08/29/181447 RELIEF CAPTAIN: ALFONSO 08/29/181447 RPT#: [id number] DC DATE: STATUS: ADM IN [facility] [address] [place] [address] END OF REPORT
--- NOTE | 2018-08-29 15:41 | NUR ---
OT NOTE: PT COMPLETED SITTING BALANCE AND STANDING BALANCE WITH SPV/MOD I. PT STATED HE IS WAITING TO GO HOME. THANK YOU, ANDREEA DICK
--- NOTE | 2018-08-29 15:49 | NUR ---
NOTIFIED PT AND GIRLFRIEND UNABLE TO SCHEDULE APPT WITH [facility] UNTIL PT CHANGES PHYSICIAN ON WELLCARE CARD HIS PCP DR. MCGEE HAS RELOCATED AND NO LONGER IN NETWORK.
[2018-08-29 19:08] LABS: FACTOR II DNA ANALYSIS Negative (())
--- NOTE | 2018-08-29 19:38 | NUR ---
PATIENT IS ALERT AND ORIENTED. RESPIRATIONS ARE EVEN AND UNLABORED. NO S/S OF DISTRESS. NO C/O PAIN. PATIENT WAITING FOR DR. VILLAFUERTE TO BE DISCHARGED. CALL LIGHT WITHIN REACH. WILL CPOC.
[2018-08-30 01:15] VITALS: BP 95/69
--- NOTE | 2018-08-30 03:37 | NUR ---
PATIENT RESTING COMFORTABLY IN BED. RESPIRATIONS ARE EVEN AND UNLABORED. NO S/S OF DISTRESS. CALL LIGHT WITHIN REACH. WILL CPOC.
[2018-08-30 05:57] LABS: ANION GAP 12.2 mmol/L (8-16); CALCIUM 8.4 mg/dL (8.5-10.1); CARBON DIOXIDE 25.7 mmol/L (21.0-32.0); CREATININE - SERUM 1.1 mg/dL (0.6-1.3); POTASSIUM - SERUM 3.9 mmol/L (3.5-5.1)
[2018-08-30 06:19] VITALS: BP 94/60
[2018-08-30 06:24] LABS: BASOPHILS 0.3 % (0-2); EOSINOPHILS 3.6 % (0-7); HEMATOCRIT 25.6 % (42.0-54.0); HEMOGLOBIN 8.5 g/dL (13.5-17.5); IMMATURE GRANULOCYTES 3.3 % (0-5); LYMPHOCYTES 6.3 % (15-50); MCH 26.5 pg (26.0-34.0); MCHC 33.2 g/dL (31.0-37.0); MCV 79.8 fL (80.0-100.0); MEAN PLATELET VOLUME 8.6 fL (7.4-10.4); MONOCYTES 8.8 % (2-11); NEUTROPHILS 77.7 % (40-80); PLATELET COUNT 540 10x3/uL (130-400); RBC 3.21 10x6/uL (4.20-6.10); RDW 14.4 % (11.5-14.5); WBC 17.9 10x3/uL (4.8-10.8)
[2018-08-30 08:11] VITALS: BP 103/59
--- NOTE | 2018-08-30 08:25 | MORECARE ---
CASE MANAGEMENT DISCHARGE SUMMARY PATIENT: JAY BAKER UNIT: [id number] ADM DATE: 08/16/18 AGE: 52 : 65 SEX: M ROOM/BED: D.2139 AUTHOR: MARY,DOC PHYSICIAN: REFERRING PHYSICIAN: ROSALINDA VILLAFUERTE MD DATE OF SERVICE: 08/30/18 Discharge Plan Patient Name: JAY BAKER Facility: [facility]:[place] : 1965 Planned Disposition: Home Anticipated Discharge Date: 08/30/18 Discharge Date: Expected LOS: 14 Initial Reviewer: [id number] Initial Review Date: 08/18/2018 Generated: 08/30/18 9:25 am Comments DCP- Discharge Planning Updated by [id number]: Jl Jiménez on 08/29/18 12:[address] Patient Name: JAY BAKER Encounter No: [id number] : 1965 Primary Insurance: [employer] MEDICARE ADV Anticipated DC Date: 08-30-2018 Planned Disposition: Home DCP follow-up note: CM MET WITH PT IN ROOM TO DISCUSS DISCHARGE NEEDS AND PLANNING. CM DISCUSSED AVAILABILITY OF HOME HEALTH, REHAB SERVICES AND MEDICAL EQUIPMENT. PT REPORTS THE OTHER RICE FARMER IS WORKING ON A TRILOGY AND OXYGEN FOR HIM TO GO HOME TODAY. PT REPORTS HAVING HIS BROTHER COMING TO PICK HE AND HIS GIRLFRIEND UP TODAY. PT DENIES NEED OF REHAB, OTHER MEDICAL EQUIPMENT OR HOME HEALTH. PT IS WAITING HOSPITAL DELIVERY OF TRILOGY AND PORTABLE OXYGEN FOR DISCHARGE HOME TODAY. PT'S BROTHER TO MOTOR CARRIER INSPECTOR PT TODAY, PT DENIES FURHTER NEEDS. Jl Jiménez, CASE MANAGEMENT DCP- Discharge Planning Updated by [id number]: Brianna Luo on 08/29/18 11:[address] PER WALK TESTING, PATIENT WILL REQUIRE HOME AND PORTALBE OXYGEN. I MET IN ROOM TO HAVE CHELSEA SIGNED, AND THEY HAVE EXPRESSED THEY DO NOT WANT LINCARE, STATED THEY ARE HAVING ISSUES WITH THEM IN REGARDS TO THEIR SON'S OXYGEN. I CALLED [facility] ([employer] [phone]) AND THEY DO NOT DO OXYGEN. SPOKE WITH THEM AGAIN AND THEIR SECOND CHOICE OF [facility]. I CALLED [phone] AND THEY DO DELIVER OXYGEN, AND I WAS TOLD THEY HAVE A LOCAL OFFICE THAT CAN DELIVER THE PORTABLE. I FAXED ALL REQUESTED INFORMATION TO [phone], I HAVE INCLUDED A COPY OF HIS INSURANCE CARD AND AN EXPLINATION ABOUT HIS BIRTHDAY. WILL WAIT TO SEE IF FURTHER ACTION IS REQUIRED TO GET HIS OXYGEN. DCP- Discharge Planning Updated by [id number]: Brianna Luo on 08/29/18 7:[address] RECEIVED A CALL FROM STEPHON LILLY WITH [employer]. SHE STATED THEY WERE HAVING ISSUES WITH THE PATIENTS INSURANCE GOING THROUGH. I EXPLAINED THAT HIS BIRTHDATE IS WRONG AND THEY HAVE TO ENTER [birth year]. EXPLAINED THAT THE INSURANCE COMPANY IS AWARE OF THIS IS THE PATIENT, BUT WHAT THE PATIENT NEEDS TO FIX IT, HE WON'T BE ABLE TO GET UNTIL AFTER HE IS DISCHARGED. I DID SEND HER A COPY OF THE PATIENTS INSURANCE CARD PER HER REQUEST TO [phone]. DCP- Discharge Planning Updated by [id number]: Kimberly Chow on 08/26/18 1:[address] Patient Name: JAY BAKER Admission Status: Elective Accout number: [id number] Admission Date: 08-16-2018 : 1965 Admission Diagnosis:ACUTE RESPIRATORY FAILURE WITH HYPOXIA Attending: ROSALINDA VILLAFUERTE Current LOS: 10 Anticipated DC Date: Planned Disposition: Home Primary Insurance: [employer] MEDICARE ADV Discharge Planning Comments: CM MET WITH PATIENT, HE DOES NOT WANT SNF OR HH. PATIENT STATES ONLY PROBLEM IS SOB AND HE HAS FAMILY THAT LIVES WITH HIM. CM WILL WORK ON GETTING PATIENT TRILOGY BEFORE DISCHARGE. Customs Consultant: Kimberly Chow Appended by Kimberly Chow on 08/26/2018 14:49 CDT: DOCUMENTS SENT TO [employer] AT FAX [phone] FOR TRILOGY. [employer] PHONE NUMBER IS [phone]. DCP- Discharge Planning Updated by [id number]: Margaret Naranjo on 08/18/18 1:[address] Patient Name: JAY BAKER Admission Status: Elective Accout number: [id number] Admission Date: 08-16-2018 : 1965 Admission Diagnosis:ACUTE RESPIRATORY FAILURE WITH HYPOXIA Attending: ROSALINDA VILLAFUERTE Current LOS: 2 Anticipated DC Date: Planned Disposition: Home Primary Insurance: MEDICARE A & B Discharge Planning Comments: CM met with patient at bedside. Patient states he lives at home with his girlfriend ( Kristy). He plans on returning to their home upon discharge. He states he feels safe at his home. He states he has a secured entrance monitor that he is suppose to wear. He states that it doesn't car pick up driver where he lives. Patient may need home 02 upon discharge if he does require home 02 then he will need walk test. He states he will have family drive him home upon discharge. He denies any discharge needs at this time. CM will continue to follow and assist as needed with discharge planning / needs. Customs Consultant: Margaret Naranjo DCPIA - Discharge Planning Initial Assessment Updated by [id number]: Margaret Naranjo on 08/18/18 2:45 pm * Is the patient Alert and Oriented? Yes * How many steps to enter\exit or inside your home? * PCP Kash * Pharmacy [facility] * Preadmission Environment Home with Family * ADLs Independent * Equipment Monitor Cardiac * Other Equipment patient states he is suppose to use a secured entrance monitor but it doesn't car pick up driver at his home * List name and contact numbers for known caregivers / representatives who currently or will assist patient after discharge: Kristy Amor - girlfriend- [phone] * Verbal permission to speak to the caregivers and representatives has been obtained from the patient. N/A * Community resources currently utilized None * Additional services required to return to the preadmission environment? No * Can the patient safely return to the preadmission environment? Yes * Has this patient been hospitalized within the prior 30 days at any hospital? Yes Coverage Notice Reviewer: [id number] - Brianna Luo Notice Issued Date-Time: 08/29/2018 11:38 Notice Type: Patient Choice Letter Notice Delivered To: Family Member Relationship to Patient: Spouse Buggy Runner Name: Delivery Method: - Stephanie Days: Prior Verbal Notification: Recipient Understood Notice: Recipient Signature: Med Rec Note Co-signed by Attending: Coverage Notice Comment: Reviewer: [id number] - Jl Jiménez Notice Issued Date-Time: 08/29/2018 13:30 Notice Type: IM Discharge Notice Notice Delivered To: Patient Relationship to Patient: Buggy Runner Name: Delivery Method: HAND - Hand Delivered Stephanie Days: Prior Verbal Notification: Recipient Understood Notice: Yes Recipient Signature: Yes Med Rec Note Co-signed by Attending: Coverage Notice Comment: Last DP export: 08/29/18 1:48 pm Patient Name: JAY BAKER Page 40832 at 0825 All edits/amendments must be made on the electronic document DICTATION DATE: 08/30/18824 SALVAGE REPAIRER: ALFONSO 08/30/18824 RPT#: [id number] DC DATE: STATUS: ADM IN [facility] [address] [place] [address] END OF REPORT
--- NOTE | 2018-08-30 10:00 | NUR ---
PT SITTING UP ON SIDE OF BED EATING BREAKFAST. C/O PAIN IN CHEST. NORCO GIVEN WITH MORNING MEDS. A/O X 4. UP AB BOB. VITALS STABLE. TOOK MEDS WITHOUT DIFFICULTY. L UPPER ARM MIDLINE SL. 6L O2 VIA HIGH FLOW. INFORMED PT IT IS IMPORTANT THAT HE KEEPS O2 ON. REFUSED COLACE AND MIRALAX. ABD DISTENDED. NO FURTHER CONERNS AT THIS TIME. BED LOWERED AND LOCKED. CL IN REACH. WILL CPOC.
[2018-08-30] MEDS ORDERED: IPRAT-ALBUT 0.5-3 ML UPD (10:04)
[2018-08-30] MEDS ORDERED: XARELTO15 MG PO (10:08)
[2018-08-30] MEDS ORDERED: PROTONIX40 MG PO (10:09)
[2018-08-30] MEDS ORDERED: MIRALAX17 GM PO (10:09)
[2018-08-30] MEDS ORDERED: XARELTO20 MG PO (10:09)
--- NOTE | 2018-08-30 10:11 | NUR ---
O2 98 % ON 6L HIGH FLOW. NO C/O DISTRESS AT THIS TIME.
--- NOTE | 2018-08-30 10:18 | NUR ---
IGNACIO, PT BROTHER, INFORMED ME THAT WHEN PT WAS GOING TO BE DC HE WANTED TO BE NOTIFIED BECAUSE HE LIVED AN HOUR AND A HALF AWAY. CALLED IGNACIO AT [phone], NO ANSWER. NO VOICE MAIL BOX WAS SETUP. CALLED THE OTHER NUMBER IN CHART, CHARLES, AT [phone], CALL WAS SENT STRAIGHT TO VOICEMAIL.
[2018-08-30 11:41] VITALS: BP 108/61
--- NOTE | 2018-08-30 12:06 | MORECARE ---
CASE MANAGEMENT DISCHARGE SUMMARY PATIENT: JAY BAKER UNIT: [id number] ADM DATE: 08/16/18 AGE: 52 : 65 SEX: M ROOM/BED: D.2139 AUTHOR: MARY,DOC PHYSICIAN: REFERRING PHYSICIAN: ROSALINDA VILLAFUERTE MD DATE OF SERVICE: 08/30/18 Discharge Plan Patient Name: JAY BAKER Facility: [facility]:[place] : 1965 Planned Disposition: Home Anticipated Discharge Date: 08/30/18 Discharge Date: Expected LOS: 14 Initial Reviewer: [id number] Initial Review Date: 08/18/2018 Generated: 08/30/18 1:06 pm Comments DCP- Discharge Planning Updated by [id number]: Jl Jiménez on 08/29/18 12:[address] Patient Name: JAY BAKER Encounter No: [id number] : 1965 Primary Insurance: [employer] MEDICARE ADV Anticipated DC Date: 08-30-2018 Planned Disposition: Home DCP follow-up note: CM MET WITH PT IN ROOM TO DISCUSS DISCHARGE NEEDS AND PLANNING. CM DISCUSSED AVAILABILITY OF HOME HEALTH, REHAB SERVICES AND MEDICAL EQUIPMENT. PT REPORTS THE OTHER AUDIOLOGY ASSISTANT IS WORKING ON A TRILOGY AND OXYGEN FOR HIM TO GO HOME TODAY. PT REPORTS HAVING HIS BROTHER COMING TO PICK HE AND HIS GIRLFRIEND UP TODAY. PT DENIES NEED OF REHAB, OTHER MEDICAL EQUIPMENT OR HOME HEALTH. PT IS WAITING HOSPITAL DELIVERY OF TRILOGY AND PORTABLE OXYGEN FOR DISCHARGE HOME TODAY. PT'S BROTHER TO NUCLEAR EQUIPMENT OPERATOR PT TODAY, PT DENIES FURHTER NEEDS. Jl Jiménez, CASE MANAGEMENT DCP- Discharge Planning Updated by [id number]: Brianna Luo on 08/29/18 11:[address] PER WALK TESTING, PATIENT WILL REQUIRE HOME AND PORTALBE OXYGEN. I MET IN ROOM TO HAVE CHELSEA SIGNED, AND THEY HAVE EXPRESSED THEY DO NOT WANT LINCARE, STATED THEY ARE HAVING ISSUES WITH THEM IN REGARDS TO THEIR SON'S OXYGEN. I CALLED [email or web address] [phone]) AND THEY DO NOT DO OXYGEN. SPOKE WITH THEM AGAIN AND THEIR SECOND CHOICE OF [facility]. I CALLED [phone] AND THEY DO DELIVER OXYGEN, AND I WAS TOLD THEY HAVE A LOCAL OFFICE THAT CAN DELIVER THE PORTABLE. I FAXED ALL REQUESTED INFORMATION TO [phone], I HAVE INCLUDED A COPY OF HIS INSURANCE CARD AND AN EXPLINATION ABOUT HIS BIRTHDAY. WILL WAIT TO SEE IF FURTHER ACTION IS REQUIRED TO GET HIS OXYGEN. DCP- Discharge Planning Updated by [email or web address]: Brianna Luo on 08/29/18 7:[address] RECEIVED A CALL FROM STEPHON LILLY WITH [employer]. SHE STATED THEY WERE HAVING ISSUES WITH THE PATIENTS INSURANCE GOING THROUGH. I EXPLAINED THAT HIS BIRTHDATE IS WRONG AND THEY HAVE TO ENTER [birth year]. EXPLAINED THAT THE INSURANCE COMPANY IS AWARE OF THIS IS THE PATIENT, BUT WHAT THE PATIENT NEEDS TO FIX IT, HE WON'T BE ABLE TO GET UNTIL AFTER HE IS DISCHARGED. I DID SEND HER A COPY OF THE PATIENTS INSURANCE CARD PER HER REQUEST TO [phone]. DCP- Discharge Planning Updated by [id number]: Kimberly Chow on 08/26/18 1:[address] Patient Name: JAY BAKER Admission Status: Elective Accout number: [id number] Admission Date: 08-16-2018 : 1965 Admission Diagnosis:ACUTE RESPIRATORY FAILURE WITH HYPOXIA Attending: ROSALINDA VILLAFUERTE Current LOS: 10 Anticipated DC Date: Planned Disposition: Home Primary Insurance: [employer] MEDICARE ADV Discharge Planning Comments: CM MET WITH PATIENT, HE DOES NOT WANT SNF OR HH. PATIENT STATES ONLY PROBLEM IS SOB AND HE HAS FAMILY THAT LIVES WITH HIM. CM WILL WORK ON GETTING PATIENT TRILOGY BEFORE DISCHARGE. Tail Ripper: Kimberly Chow Appended by Kimberly Chow on 08/26/2018 14:49 CDT: DOCUMENTS SENT TO [facility] AT FAX [phone] FOR TRILOGY. [facility] PHONE NUMBER IS [phone]. DCP- Discharge Planning Updated by [id number]: Margaret Naranjo on 08/18/18 1:[address] Patient Name: JAY BAKER Admission Status: Elective Accout number: [id number] Admission Date: 08-16-2018 : 1965 Admission Diagnosis:ACUTE RESPIRATORY FAILURE WITH HYPOXIA Attending: ROSALINDA VILLAFUERTE Current LOS: 2 Anticipated DC Date: Planned Disposition: Home Primary Insurance: MEDICARE A & B Discharge Planning Comments: CM met with patient at bedside. Patient states he lives at home with his girlfriend ( Kristy). He plans on returning to their home upon discharge. He states he feels safe at his home. He states he has a cardiac technologist that he is suppose to wear. He states that it doesn't oyster picker where he lives. Patient may need home 02 upon discharge if he does require home 02 then he will need walk test. He states he will have family drive him home upon discharge. He denies any discharge needs at this time. CM will continue to follow and assist as needed with discharge planning / needs. Tail Ripper: Margaret Naranjo DCPIA - Discharge Planning Initial Assessment Updated by [email or web address]: Margaret Naranjo on 08/18/18 2:45 pm * Is the patient Alert and Oriented? Yes * How many steps to enter\exit or inside your home? * PCP Kash * Pharm[facility] * Preadmission Environment Home with Family * ADLs Independent * Equipment Monitor Cardiac * Other Equipment patient states he is suppose to use a cardiac technologist but it doesn't oyster picker at his home * List name and contact numbers for known caregivers / representatives who currently or will assist patient after discharge: Kristy Amor - girlfriend- [phone] * Verbal permission to speak to the caregivers and representatives has been obtained from the patient. N/A * Community resources currently utilized None * Additional services required to return to the preadmission environment? No * Can the patient safely return to the preadmission environment? Yes * Has this patient been hospitalized within the prior 30 days at any hospital? Yes External Providers External Provider: OTHER-OTHER Next Contact Date: Service Request Date: Service Type: Resolution: Reviewer: Comments: Coverage Notice Reviewer: [id number] Anne Brianna Luo Notice Issued Date-Time: 08/29/2018 11:38 Notice Type: Patient Choice Letter Notice Delivered To: Family Member Relationship to Patient: Spouse Manager Media Name: Delivery Method: - Stephanie Days: Prior Verbal Notification: Recipient Understood Notice: Recipient Signature: Med Rec Note Co-signed by Attending: Coverage Notice Comment: Reviewer: [id number] - Jl Jiménez Notice Issued Date-Time: 08/29/2018 13:30 Notice Type: IM Discharge Notice Notice Delivered To: Patient Relationship to Patient: Manager Media Name: Delivery Method: HAND - Hand Delivered Stephanie Days: Prior Verbal Notification: Recipient Understood Notice: Yes Recipient Signature: Yes Med Rec Note Co-signed by Attending: Coverage Notice Comment: Last DP export: 08/30/18 7:25 am Patient Name: JAY BAKER Page 30008 at 1206 All edits/amendments must be made on the electronic document DICTATION DATE: 08/30/18 120 SENIOR SOLUTIONS ARCHITECT: ALFONSO 08/30/18 1206 RPT#: [id number] DC DATE: STATUS: ADM IN [facility] [address] [place] [address] END OF REPORT
--- NOTE | 2018-08-30 12:18 | MORECARE ---
CASE MANAGEMENT DISCHARGE SUMMARY PATIENT: JAY BAKER UNIT: [id number] ADM DATE: 08/16/18 AGE: 52 : 65 SEX: M ROOM/BED: D.2139 AUTHOR: MARYDOC PHYSICIAN: REFERRING PHYSICIAN: ROSALINDA VILLAFUERTE MD DATE OF SERVICE: 08/30/18 Discharge Plan Patient Name: JAY BAKER Facility: [facility]:[place] : 1965 Planned Disposition: Home Anticipated Discharge Date: 08/30/18 Discharge Date: Expected LOS: 14 Initial Reviewer: [email or web address] Initial Review Date: 08/18/2018 Generated: 08/30/18 1:17 pm Comments DCP- Discharge Planning Updated by [id number]: Jl Jiménez on 08/30/18 11:[address] Patient Name: JAY BAKER Encounter No: [id number] : 1965 Primary Insurance: [employer] MEDICARE ADV Anticipated DC Date: 08-30-2018 Planned Disposition: Home DCP follow-up note: CM RECEIVED NEBULIZER ORDER, MET WITH PT IN ROOM TO DISCUSS DISCHARGE NEEDS AND PLANNING. PT DOES NOT KNOW IF HE STILL HAS A NEBULIZER, HE LAST BOUGHT ONE SEVERAL YEARS AGO AND CANNOT RECALL WHERE IT IS AT. PT WOULD LIKE ONE FROM [employer], THE SAME PEOPLE HE GOT HIS OXYGEN FROM; CHOICE PREVIOUSLY SIGNED. CM DISCUSSED AVAILABILITY OF HOME HEALTH, REHAB SERVICES AND MEDICAL EQUIPMENT. PT DENIES DISCHARGE NEEDS. PT'S BROTHER TO TRANSPORT HOME AT DISCHARGE TODAY. CM CALLED [facility], , SPOKE TO TAMMY WHO REFERRED CM TO CALL HER AFFILIATE OFFICE IN [facility] WHO CAN DELIVER THE NEBULIZER WITH PT'S HOME OXYGEN TODAY. CM CALLED [facility], , SPOKE TO JON AND PROVIDED REFERRAL INFORMATION. CM FAXED REFERRAL TO [facility], . JON ADVISED THEY WILL DELIVER HOME OXYGEN AND NEBULIZER WHEN PT ARRIVES AT HOME AFTER DISCHARGE. Jl Jiménez, CASE MANAGEMENT DCP- Discharge Planning Updated by [id number]: Jl Jiménez on 08/29/18 12:[address] Patient Name: JAY BAKER Encounter No: [id number] : 1965 Primary Insurance: [employer] MEDICARE ADV Anticipated DC Date: 08-30-2018 Planned Disposition: Home DCP follow-up note: CM MET WITH PT IN ROOM TO DISCUSS DISCHARGE NEEDS AND PLANNING. CM DISCUSSED AVAILABILITY OF HOME HEALTH, REHAB SERVICES AND MEDICAL EQUIPMENT. PT REPORTS THE OTHER TAR POT WORKER IS WORKING ON A TRILOGY AND OXYGEN FOR HIM TO GO HOME TODAY. PT REPORTS HAVING HIS BROTHER COMING TO PICK HE AND HIS GIRLFRIEND UP TODAY. PT DENIES NEED OF REHAB, OTHER MEDICAL EQUIPMENT OR HOME HEALTH. PT IS WAITING HOSPITAL DELIVERY OF TRILOGY AND PORTABLE OXYGEN FOR DISCHARGE HOME TODAY. PT'S BROTHER TO THREAD [employer] PT TODAY, PT DENIES FURHTER NEEDS. Jl Jiménez, CASE MANAGEMENT DCP- Discharge Planning Updated by [id number]: Brianna Luo on 08/29/18 11:[address] PER WALK TESTING, PATIENT WILL REQUIRE HOME AND PORTALBE OXYGEN. I MET IN ROOM TO HAVE CHELSEA SIGNED, AND THEY HAVE EXPRESSED THEY DO NOT WANT L[facility], STATED THEY ARE HAVING ISSUES WITH THEM IN REGARDS TO THEIR SON'S OXYGEN. [facility] [phone]) AND THEY DO NOT DO OXYGEN. SPOKE WITH THEM AGAIN AND THEIR SECOND CHOICE OF [facility]. I CALLED [phone] AND THEY DO DELIVER OXYGEN, AND I WAS TOLD THEY HAVE A LOCAL OFFICE THAT CAN DELIVER THE PORTABLE. I FAXED ALL REQUESTED INFORMATION TO [phone], I HAVE INCLUDED A COPY OF HIS INSURANCE CARD AND AN EXPLINATION ABOUT HIS BIRTHDAY. WILL WAIT TO SEE IF FURTHER ACTION IS REQUIRED TO GET HIS OXYGEN. DCP- Discharge Planning Updated by [id number]: Brianna Luo on 08/29/18 7:[address] RECEIVED A CALL FROM STEPHON LILLY WITH [employer]. SHE STATED THEY WERE HAVING ISSUES WITH THE PATIENTS INSURANCE GOING THROUGH. I EXPLAINED THAT HIS BIRTHDATE IS WRONG AND THEY HAVE TO ENTER [birth year]. EXPLAINED THAT THE INSURANCE COMPANY IS AWARE OF THIS IS THE PATIENT, BUT WHAT THE PATIENT NEEDS TO FIX IT, HE WON'T BE ABLE TO GET UNTIL AFTER HE IS DISCHARGED. I DID SEND HER A COPY OF THE PATIENTS INSURANCE CARD PER HER REQUEST TO [phone]. DCP- Discharge Planning Updated by [id number]: Kimberlykendrick Chow on 08/26/18 1:[address] Patient Name: JAY BAKER Admission Status: Elective Accout number: [id number] Admission Date: 08-16-2018 : 1965 Admission Diagnosis:ACUTE RESPIRATORY FAILURE WITH HYPOXIA Attending: ROSALINDA VILLAFUERTE Current LOS: 10 Anticipated DC Date: Planned Disposition: Home Primary Insurance: [employer] MEDICARE ADV Discharge Planning Comments: CM MET WITH PATIENT, HE DOES NOT WANT SNF OR HH. PATIENT STATES ONLY PROBLEM IS SOB AND HE HAS FAMILY THAT LIVES WITH HIM. CM WILL WORK ON GETTING PATIENT TRILOGY BEFORE DISCHARGE. Garment Folder: Kimberly Chow Appended by Kimberly Chow on 08/26/2018 14:49 CDT: DOCUMENTS SENT TO [facility] AT FAX [phone] FOR TRILOGY. [facility] PHONE NUMBER IS [phone]. DCP- Discharge Planning Updated by [id number]: Margaret Naranjo on 08/18/18 1:[address] Patient Name: JAY BAKER Admission Status: Elective Accout number: [id number] Admission Date: 08-16-2018 : 1965 Admission Diagnosis:ACUTE RESPIRATORY FAILURE WITH HYPOXIA Attending: ROSALINDA VILLAFUERTE Current LOS: 2 Anticipated DC Date: Planned Disposition: Home Primary Insurance: MEDICARE A & B Discharge Planning Comments: CM met with patient at bedside. Patient states he lives at home with his girlfriend ( Kristy). He plans on returning to their home upon discharge. He states he feels safe at his home. He states he has a security monitor that he is suppose to wear. He states that it doesn't last picker where he lives. Patient may need home 02 upon discharge if he does require home 02 then he will need walk test. He states he will have family drive him home upon discharge. He denies any discharge needs at this time. CM will continue to follow and assist as needed with discharge planning / needs. Garment Folder: Margaret Naranjo DCPIA - Discharge Planning Initial Assessment Updated by [id number]: Margaret Naranjo on 08/18/18 2:45 pm * Is the patient Alert and Oriented? Yes * How many steps to enter\exit or inside your home? * PCP Kash * Pharmacy [facility] * Preadmission Environment Home with Family * ADLs Independent * Equipment Monitor Cardiac * Other Equipment patient states he is suppose to use a security monitor but it doesn't last picker at his home * List name and contact numbers for known caregivers / representatives who currently or will assist patient after discharge: Kristy Amor - girlfriend- [phone] * Verbal permission to speak to the caregivers and representatives has been obtained from the patient. N/A * Community resources currently utilized None * Additional services required to return to the preadmission environment? No * Can the patient safely return to the preadmission environment? Yes * Has this patient been hospitalized within the prior 30 days at any hospital? Yes Coverage Notice Reviewer: [email or web address] Anne Luo Notice Issued Date-Time: 08/29/2018 11:38 Notice Type: Patient Choice Letter Notice Delivered To: Family Member Relationship to Patient: Spouse Textile Chemist Name: Delivery Method: - Stephanie Days: Prior Verbal Notification: Recipient Understood Notice: Recipient Signature: Med Rec Note Co-signed by Attending: Coverage Notice Comment: Reviewer: [email or web address] Anne Jiménez Notice Issued Date-Time: 08/29/2018 13:30 Notice Type: IM Discharge Notice Notice Delivered To: Patient Relationship to Patient: Textile Chemist Name: Delivery Method: HAND - Hand Delivered Stephanie Days: Prior Verbal Notification: Recipient Understood Notice: Yes Recipient Signature: Yes Med Rec Note Co-signed by Attending: Coverage Notice Comment: Last DP export: 08/30/18 11:06 am Patient Name: JAY BAKER Page [id number] at 1218 All edits/amendments must be made on the electronic document DICTATION DATE: 08/30/18 1217 GLAZE HANDLER: ALFONSO 08/30/18 1217 RPT#: [id number] DC DATE: STATUS: ADM IN [address] [place] [address] END OF REPORT
--- NOTE | 2018-08-30 12:34 | NUR ---
CALLED PT BROTHER IGNACIO. NOTIFED THAT PT DC WAS READY. IGNACIO STATED HE WOULD BE HERE WITHIN AN HOUR AND A HALF TO 2 HOURS.
--- NOTE | 2018-08-30 13:04 | NUR ---
DC GIVEN TO PT. DENIES CONCERNS AT THIS TIME. AWAITING RIDE.
--- NOTE | 2018-08-30 13:15 | NUR ---
PT WALKED TO NURSES STATION. ASKED FOR PERSONAL BELONGINGS BAG. AWAITING RIDE TO GO HOME. MIDLINE REMOVED BY АННА YEE. TIP INTACT. NO BLEEDING. INFORMED PT TO NOT REMOVED DRSG FOR 24 HOURS. NO FURTHER CONCERNS AT THIS TIME.
--- NOTE | 2018-08-30 14:42 | NUR ---
I have reviewed this patient and I concur with the Shift Assessment completed by the Licensed Practical Nurse today this shift.
--- NOTE | 2018-08-30 14:49 | NUR ---
PT RIDE STILL NOT ARRIVED. PT SITTING IN CHAIR AT BEDSIDE WAITING. NO FURTHER CONCERNS AT THIS TIME. WILL CPOC.
--- NOTE | 2018-08-30 16:26 | NUR ---
STILL WAITING FOR FAMILY TO ARRIVE. PT STATED AT 1514 THAT FAMILY WAS IN [place] ONLY 30 MINUTES AWAY.
--- NOTE | 2018-08-30 16:46 | NUR ---
PT WALKED OUT OF ROOM WITH OXYGEN TANK AND ASKED WHERE ER WAS. INFORMED PT THAT WE HAD TO ESCORT HIM OUT BY WHEELCHAIR. PT TAKEN TO ER ENTRACNE BY WHEELCHAIR. FAMILY WAITING. NO FURTHER CONCERNS AT THIS TIME.
--- NOTE | 2018-08-30 16:50 | NUR ---
CALLED SHANE AT [facility] AT [phone] AND INFORMED HER THAT PT HAD BEEN DC AND JUST LEFT FACILITY. SHE STATED SHE WOULD LET HER DAIRY NUTRITION CONSULTANT KNOW AND THEY WOULD MEET PT AT HOME. NO FURTHER CONCERNS.
== END 2018-08-30 16:51 | disposition home or self-care (01) | DRG 175 ==
LOC: D.M2 16:36 → D.ICU 17:45 → D.M2 08-18 21:33
PROVIDERS: Family Medicine; Internal Medicine Pulmonary Disease; ADMIT Internal Medicine Nephrology; ATTEND Internal Medicine Nephrology
PROC: 05HY33Z Insertion of Infusion Device into Upper Vein, Percutaneous Approach (ICD-10-PCS; principal; 2018-08-18)
PROC: 5A09557 Assistance with Respiratory Ventilation, Greater than 96 Consecutive Hours, Continuous Positive Airway Pressure (ICD-10-PCS; 2018-08-26)
DX: I26.99 Other pulmonary embolism without acute cor pulmonale (principal); J96.01 Acute respiratory failure with hypoxia; J18.9 Pneumonia, unspecified organism; I50.23 Acute on chronic systolic (congestive) heart failure; J44.1 Chronic obstructive pulmonary disease with (acute) exacerbation; I42.8 Other cardiomyopathies; F17.203 Nicotine dependence unspecified, with withdrawal; J44.0 Chronic obstructive pulmonary disease with (acute) lower respiratory infection; J98.11 Atelectasis; E87.1 Hypo-osmolality and hyponatremia; F10.10 Alcohol abuse, uncomplicated; I25.10 Atherosclerotic heart disease of native coronary artery without angina pectoris; I27.20 Pulmonary hypertension, unspecified; I11.0 Hypertensive heart disease with heart failure; F15.90 Other stimulant use, unspecified, uncomplicated; D64.9 Anemia, unspecified; F41.1 Generalized anxiety disorder